=== PATIENT | female | born 1950 | race Two or more races ===

== ENCOUNTER → 2016-11-23 | Outpatient (CLI) | payer BC ==
[~2016-11-23] MED LIST: /HCTZ25TA PO; ATOR1TAB21 PO; GABA300C2 PO; GLUC10TA18 PO; INSULADS SC; JANU100T PO; VICT18IN SC; VITA200016 PO; ZEST20TA8 PO
--- NOTE | 2016-12-19 01:04 | ECWPNPC ---
PATIENT NAME: PIERCE SOLORZANO : 1950 GENDER: FEMALE VISIT DATE: 11/23/2016 DISCHARGE DATE: 11/23/16 1103 VISIT LOCKED DATE TIME: PHYSICIAN: SANTOS RAWLS RESOURCE: SANTOS RAWLS REASON FOR APPOINTMENT 1. CHRONIC NECK PAIN HISTORY OF PRESENT ILLNESS FALL RISK SCREENING: SCREENING :NO FALLS IN THE PAST YEAR PAIN SCREENING: PATIENT HAS A COMPLAINT OF ACUTE OR CHRONIC PAIN :YES TODAY'S VISIT: NOTES: REFERRED BY DR LUI/PA AT [facility] FOR NECK PAIN. WAS PREVIOUSLY A PATIENT HERE 4 YEARS AGO. INITIALLY HAD INTERMITTANT PAIN IN THE NECK BUT WHAT IS PARTICULARLY BOTHERSOME IS THE TINGLING IN ORIGINALLY LEFT ARM, AND NOW TO THE RIGHT. HAS SOME INTERMITTANT WEAKNESS AND NO PARTICULAR DIFF WITH FINE HAND COORDINATION. DISCOMFORT IN ARM AWAKENS FROM SLEEP AT TIMES. NO HEADACHES. HEARS AUDIBLE CRACKING WHEN TURNING HEAD. HAS BEEN ATTENDING PHYSICAL THERAPY. NO IMPROVEMNT. HAS BEEN ON GABAPENTIN BUT NOTES NO IMPROVEMENT. WAS SEEN FOR SURGICAL EVAL BY DR PRATT AT [facility] - RECOMMENDS TRYING MORE CONSERVITIVE TREATMENT FRST.. CURRENT MEDICATIONS TAKING HYDROCHLOROTHIAZIDE 25 MG TABLET 1 TABLET IN THE MORNING ORALLY ONCE A DAY TAKING LISINOPRIL 20 MG TABLET 1 TABLET ORALLY ONCE A DAY TAKING JANUVIA 100 MG TABLET 1 TABLET ORALLY ONCE A DAY TAKING GLUCOTROL XL 10 MG TABLET EXTENDED RELEASE 24 HOUR 1 TABLET ORALLY BID TAKING ATORVASTATIN CALCIUM 20 MG TABLET 1 TABLET ORALLY ONCE A DAY TAKING VITAMIN D 1000 UNIT TABLET 1 TABLET ORALLY ONCE A DAY TAKING LANTUS 100 UNIT/ML SOLUTION 46 UNITS SUBCUTANEOUS DAILY TAKING NOVOLOG 100 UNIT/ML SOLUTION SLIDING SCALE SUBCUTANEOUS TAKING GABAPENTIN 300 MG CAPSULE 1 CAPSULE ORALLY BID MEDICATION LIST REVIEWED AND RECONCILED WITH THE PATIENT PAST MEDICAL HISTORY ARTHRITIS DM HTN HYPERLIPIDEMIA RENAL INSUFFICIENCY DIVERTICULOSIS ALLERGIES N.K.D.A. SURGICAL HISTORY MENISCUS LEFT KNEE 2013 FAMILY HISTORY FATHER: , DIAGNOSED WITH CANCER MOTHER: 86 YRS SIBLINGS: ALIVE, DIAGNOSED WITH HYPERTENSION, HEART DISEASE 2 BROTHER(S) . 1 SON(S) , 1 DAUGHTER(S) - HEALTHY. BROTHERS WITH HIGH BLOOD PRESSURE, ONE HAD CABGX 4 VESSEL. SOCIAL HISTORY GENERAL: TOBACCO USE ARE YOU A:FORMER SMOKER HOW LONG HAS IT BEEN SINCE YOU LAST SMOKED?> 10 YEARS LUNG CANCER SCREENING SMOKING STATUS:FORMER SMOKER IS THE PATIENT BETWEEN THE AGE OF 57 AND 79?YES HAVE YOU QUIT SMOKING WITHIN THE PAST 15 YEARS?YES HAS THE PATIENT EVER BEEN DIAGNOSED WITH LUNG CANCER?NO RECREATIONAL DRUG USE DRUG USE?NO PATIENT DENIES USE OF ANY ILLEGAL SUBSTANCE INCLUDING MARIJUANA OR COCAINE. CAFFEINE CAFFEINE USE?YES HOW OFTEN AND HOW MUCH? L1 CUP COFFEE/DAY OCCUPATION: RETIRED. DIET: DIABETIC. MARITAL STATUS: . OTHERS AT HOME: NONE. PETS: 1 DOG. LANGUAGE LANGUAGES SPOKEN:INDONESIAN LEARNING BARRIERS / SPECIAL NEEDS BARRIERS TO LEARNING?NO PAIN CLINIC PFS, CLERGY, PUBLIC HEALTH REFERRALS HAS THE PATIENT BEEN EDUCATED REGARDING HIS/HER PLAN OF CARE?YES HAS THE PATIENT BEEN EDUCATED REGARDING PAIN, THE RISK FOR PAIN, THE IMPORTANCE OF EFFECTIVE PAIN MANAGEMENT, AND THE PAIN ASSESSMENT PROCESS?YES ADVANCE DIRECTIVES HEALTH CARE PROXY?NO WOULD YOU LIKE MORE INFORMATION?NO DO YOU HAVE A DNR?NO WOULD YOU LIKE MORE INFORMATION?NO LIVING WILL?NO WOULD YOU LIKE MORE INFORMATION?NO POWER OF FIRST BEATER?NO WOULD YOU LIKE MORE INFORMATION?NO HOSPITALIZATION/MAJOR DIAGNOSTIC PROCEDURE DENIES PAST HOSPITALIZATION REVIEW OF SYSTEMS REVIEWED BY: PROVIDER: SANTOS INMAN . CONSTITUTIONAL: ANY CHANGE IN YOUR MEDICAL CONDITION? NO . CHILLS NO . FEVER NO . INFECTION: DO YOU HAVE NEW INFECTIONS? NO . DO YOU HAVE HISTORY OF MRSA? NO . MUSCULOSKELETAL: ANY NEW PATTERNS OF PAIN OR NUMBNESS? YES PT REPORTS BURNING/TINGLING DOWN RIGHT ARM INTO HANDS. WAS INTERMITTANT, AND BECAME CONSTANT. HAS TRIED PHYSICAL THERAPY WITH NO HELP. . SYTEMIC LUPUS NO . GASTROENTEROLOGY: ANY NEW CHANGE IN BOWEL CONTROL? NO . BARRETTS ESOPHAGUS NO . CIRRHOSIS NO . HEPATITIS NO . LIVER FAILURE NO . ACID REFLUX NO . UNEXPLAINED WEIGHT LOSS NO . GENITOURINARY: ANY NEW CHANGE IN BLADDER CONTROL? NO . IS THERE A CHANCE YOU COULD BE ? NO . HEMATOLOGY/LYMPH: DO YOU TAKE ANY BLOOD THINNERS? (FOR EXAMPLE- COUMADIN, PLAVIX, AGGRENOX, PLATEL, PRADAXA, OR XARELTO) NO . WHEN WAS YOUR LAST DOSE? DATE: TIME: . LOW PLATELET COUNT NO . SICKLE CELL DISEASE NO . VON WILLIEBRANDS NO . FACTOR V LEIDEN NO . THALLASEMIA NO . ANEMIA NO . EASY BRUISING NO . NEUROLOGY: HAVE YOU FALLEN IN THE PAST 6 MONTHS? NO . ANY NEW EXTREMITY NUMBNESS OR WEAKNESS? NO . HEAD INJURY NO . DEMENTIA NO . CEREBRAL PALSY NO . MULTIPLE SCLEROSIS NO . DIZZINESS NO . HEADACHE NO . STROKES NO . VERTIGO NO . CARDIOLOGY: DO YOU HAVE A PACEMAKER OR DEFIBRILLATOR? NO . ANGINA NO . HEART ATTACK NO . HEART SURGERY NO . CONGESTIVE HEART FAILURE/FLUID OVERLOAD NO . CHEST PAIN NO . HIGH BLOOD PRESSURE ON MEDICATION(S) . IRREGULAR HEART BEAT NO . RESPIRATORY: HAVE YOU BEEN SICK IN THE PAST WEEK? NO . FEVER NO . FLU LIKE SYMPTOMS? NO . CPAP NO . BYPAP NO . ASTHMA NO . EMPHYSEMA NO . CHRONIC LUNG DISEASES NO . SHORTNESS OF BREATH ON EXERTION NO . COUGH NO . SNORING NO . INTEGUMENTARY: DO YOU HAVE ANY RASHES OR OPEN SORES? NO . ALLERGIC/IMMUNO: ARE YOU ALLERGIC TO SHELLFISH OR IV DYE? NO . ANY NEW ALLERGIES? NO . PSYCHIATRIC: DO YOU HAVE THOUGHTS OF HURTING YOURSELF OR SOMEONE ELSE? NO . ARE YOU ABUSED, NEGLECTED, OR IN AN UNSAFE ENVIRONMENT? NO . ENDOCRINOLOGY: ARE YOU DIABETIC? YES - BLOOD SUGARS NOT CLOSELY MONITORED A1C>7. . THYROID DISORDER NO . OTHER: DO YOU NEED ANY PRESCRIPTIONS? NO . IF YES, PLEASE LIST: ____ . ANY NEW PROBLEMS WITH YOUR MEDICATIONS? NO . WHEN DID YOU LAST EAT? ____ . WHEN DID YOU LAST DRINK? ____ . WHAT DID YOU LAST DRINK? ____ . NAME OF PERSON DRIVING YOU HOME? ____ . DO YOU HAVE ANY OTHER QUESTIONS OR CONCERNS NO . VITAL SIGNS WT 216.4 LBS, HT 65 IN, BMI 36.01 INDEX, BP 152/70 MM HG, HR 74 /MIN, RR 16 /MIN, TEMP 98.4 F, OXYGEN SAT % 95%, SAFE IN ENV? (Y/N) YES, NA INITIALS WY 09:57, REVIEWED BY: NICHOLAS. EXAMINATION GENERAL EXAMINATION: PSYCHALERT , ORIENTED X 3 , APPROPRIATE MOOD AND AFFECT . HEENT:NORMOCEPHALIC, NO LYMPHADENOPATHY, NO THYROMEGLY . LUNGS:CLEAR TO AUSCULTATION BILATERALLY, NO WHEEZES, RALES OR RHONCHI . HEART:HEART RATE REGULAR, NORMAL S1S2, NO MURMURS, CLICK OR RUBS, NO CAROTID BRUITS . MUSCULOSKELETAL:MUSCLE STRENGTH TESTING 5/5 BILATERAL BILATERAL UPPER AND LOWER EXTREMITIES. POINT TENDERNESS OVER RIGHT OCCIPITAL NOTCH AND RIGHT CERVICAL PARASPINOUS MUSCLES. NO TENDERNESS OVER THORACIC SPINOUS PROCESSES. . SKIN:DRY , FLAKY LESIONS NOTED OVER LEFT SMITH. NO ERYTHEMA, NO EXUDATE . NEUROLOGIC EXAM:CN'S II-XII GROSSLY INTACT. DTR'S 3+ BILATERAL UPPER AND LOWER EXTREMITIES. DECREASED SENSATION RIGHT UPPER EXTREMITY FROM FOREAM THROUGH HAND . . DIAGNOSTIC TESTS REVIEWEDMRI OF CERVICAL SPINE COMPLETED ON 10/28/16 WAS REVIEWED. ASSESSMENTS OTHER CERVICAL DISC DISPLACEMENT AT C5-C6 LEVEL - M50.222 (PRIMARY) CERVICAL RADICULOPATHY - M54.12 TREATMENT OTHER CERVICAL DISC DISPLACEMENT AT C5-C6 LEVEL CERVICAL EPIDURAL RIGHT NOTES: CHECK BLOOD SUGAR MEDS THE AM OF PROCEDURE. DO BLOOD SUGAR MORNING OF PROCEDURE,CERVICAL EPIDURAL INJECTION MATERIAL WAS PRINTED,CERVICAL EPIDURAL INJECTION: YOUR EXPERIENCE MATERIAL WAS PRINTED. PROCEDURE CODES FA211 ESTABILISHED PATIENT [facility] CHARGE DISPOSITION & COMMUNICATION FOLLOW UP AFTER INJECTION (REASON: CHECK AUTH FOR [place]IM[place]) ELECTRONICALLY SIGNED BY RAFAEL IRAHETA ON 12/18/2016 AT 10:17 AM EDT DISCLAIMER : THIS IS A VISIT SUMMARY EXTRACTED FROM THE [email or web address] CHART. IT IS NOT A COPY OF THE [email or web address] PROGRESS NOTE. JEANETTE
== END | disposition home or self-care (01) ==
LOC: M PAIN 10:00
PROVIDERS: ATTEND Nurse Practitioner Family
DX: G89.29 Other chronic pain (principal); M50.222 Other cervical disc displacement at C5-C6 level; M54.12 Radiculopathy, cervical region; M19.90 Unspecified osteoarthritis, unspecified site; E11.9 Type 2 diabetes mellitus without complications; I10 Essential (primary) hypertension; E78.5 Hyperlipidemia, unspecified; N28.9 Disorder of kidney and ureter, unspecified; Z79.899 Other long term (current) drug therapy; Z79.4 Long term (current) use of insulin; Z87.891 Personal history of nicotine dependence

== ENCOUNTER → 2016-12-09 | Outpatient (CLI) | payer BC ==
[~2016-12-09] MED LIST changes: +ISOVUE-M 300 61% 15ML VIAL (Q9967) As Ordered ONE; +LIDOCAINE 1% SDV INJ 30 ML VIAL As Ordered ONE; +diazePAM 5 MG TAB As Ordered ONE; +methylPREDNISolone SUSP 40 MG/ML (DEPO-medrol) VIAL (J1030) As Ordered ONE; +oxyCODONE 5MG TAB As Ordered ONE
--- NOTE | 2016-12-09 16:07 | REP ---
Cervical spine series: Two views: History: Cervical epidural steroid injection for pain. 17 seconds of fluoroscopy is reported. Findings: A sequence of two last image hold fluoroscopic spot radiographs of the cervicothoracic junction document needle position and contrast injection associated with injection procedure. Signed by Gabino Cook MD 12/09/2016 05:03 P
--- NOTE | 2016-12-15 00:43 | ECWPNPC ---
PATIENT NAME: PIERCE SOLORZANO : 1950 GENDER: FEMALE VISIT DATE: 12/09/2016 DISCHARGE DATE: 12/09/16 1348 VISIT LOCKED DATE TIME: PHYSICIAN: CAITIE PHILLIPS RESOURCE: CAITIE PHILLIPS REASON FOR APPOINTMENT 1. CERVICAL EPIDURAL RIGHT HISTORY OF PRESENT ILLNESS HISTORY OF PRESENT ILLNESS: PAIN THE PATIENT DESCRIBES THE PAIN... FALL RISK SCREENING: SCREENING :NO FALLS IN THE PAST YEAR CURRENT MEDICATIONS TAKING HYDROCHLOROTHIAZIDE 25 MG TABLET 1 TABLET IN THE MORNING ORALLY ONCE A DAY, NOTES: 12/09/16 0800 TAKING LISINOPRIL 20 MG TABLET 1 TABLET ORALLY ONCE A DAY, NOTES: 12/08/16 0800 TAKING JANUVIA 100 MG TABLET 1 TABLET ORALLY ONCE A DAY, NOTES: 12/08/16 1800 TAKING GLUCOTROL XL 10 MG TABLET EXTENDED RELEASE 24 HOUR 1 TABLET ORALLY BID, NOTES: 12/08/16 1800 TAKING ATORVASTATIN CALCIUM 20 MG TABLET 1 TABLET ORALLY ONCE A DAY, NOTES: 12/08/16 1800 TAKING VITAMIN D 1000 UNIT TABLET 1 TABLET ORALLY ONCE A DAY, NOTES: 12/09/16 0800 TAKING LANTUS 100 UNIT/ML SOLUTION 46 UNITS SUBCUTANEOUS DAILY, NOTES: 12/08/16 2130 TAKING NOVOLOG 100 UNIT/ML SOLUTION SLIDING SCALE SUBCUTANEOUS , NOTES: 12/08/16 1700 TAKING GABAPENTIN 300 MG CAPSULE 1 CAPSULE ORALLY BID, NOTES: 12/08/16 1800 MEDICATION LIST REVIEWED AND RECONCILED WITH THE PATIENT PAST MEDICAL HISTORY ARTHRITIS DM HTN HYPERLIPIDEMIA RENAL INSUFFICIENCY DIVERTICULOSIS ALLERGIES N.K.D.A. REVIEW OF SYSTEMS REVIEWED BY: PROVIDER: . CONSTITUTIONAL: ANY CHANGE IN YOUR MEDICAL CONDITION? NO . CHILLS NO . FEVER NO . INFECTION: DO YOU HAVE NEW INFECTIONS? NO . DO YOU HAVE HISTORY OF MRSA? NO . MUSCULOSKELETAL: ANY NEW PATTERNS OF PAIN OR NUMBNESS? NO . GASTROENTEROLOGY: ANY NEW CHANGE IN BOWEL CONTROL? NO . GENITOURINARY: ANY NEW CHANGE IN BLADDER CONTROL? NO . IS THERE A CHANCE YOU COULD BE ? NO . HEMATOLOGY/LYMPH: DO YOU TAKE ANY BLOOD THINNERS? (FOR EXAMPLE- COUMADIN, PLAVIX, AGGRENOX, PLATEL, PRADAXA, OR XARELTO) NO . WHEN WAS YOUR LAST DOSE? DATE: TIME: . NEUROLOGY: HAVE YOU FALLEN IN THE PAST 6 MONTHS? NO . ANY NEW EXTREMITY NUMBNESS OR WEAKNESS? NO . CARDIOLOGY: DO YOU HAVE A PACEMAKER OR DEFIBRILLATOR? NO . RESPIRATORY: HAVE YOU BEEN SICK IN THE PAST WEEK? NO . FEVER NO . FLU LIKE SYMPTOMS? NO . COUGH NO . INTEGUMENTARY: DO YOU HAVE ANY RASHES OR OPEN SORES? NO . ALLERGIC/IMMUNO: ARE YOU ALLERGIC TO SHELLFISH OR IV DYE? NO . ANY NEW ALLERGIES? NO . PSYCHIATRIC: DO YOU HAVE THOUGHTS OF HURTING YOURSELF OR SOMEONE ELSE? NO . ARE YOU ABUSED, NEGLECTED, OR IN AN UNSAFE ENVIRONMENT? NO . ENDOCRINOLOGY: ARE YOU DIABETIC? YES . OTHER: DO YOU NEED ANY PRESCRIPTIONS? NO . IF YES, PLEASE LIST: ____ . ANY NEW PROBLEMS WITH YOUR MEDICATIONS? NO . WHEN DID YOU LAST EAT? ____12/08/16 1800 . WHEN DID YOU LAST DRINK? ____12/09/16 0900 . WHAT DID YOU LAST DRINK? ____WATER . NAME OF PERSON DRIVING YOU HOME? ____DEBBIE POLLIC . DO YOU HAVE ANY OTHER QUESTIONS OR CONCERNS NO . VITAL SIGNS WT 216 LBS, HT 65 IN, BMI 35.94 INDEX, BP 160/80 MM HG, HR 66 /MIN, RR 16 /MIN, TEMP 97.4 F, OXYGEN SAT % 96%, BLOOD GLUCOSE LEVEL 163 AT 1000 PER PT, SAFE IN ENV? (Y/N) YES, NA INITIALS AR 11:46, REVIEWED BY: ASSESSMENTS CERVICAL DISC DISORDER WITH RADICULOPATHY OF CERVICOTHORACIC REGION - M50.13 (PRIMARY) PROCEDURES PN CERVICAL EPIDURAL PRE PROCEDURE DIAGNOSIS CERVICAL DISC DISORDER WITH RADICULOPATHY POST PROCEDURE DIAGNOSIS CERVICAL DISC DISORDER WITH RADICULOPATHY PROCEDURE CERVICAL EPIDURAL STEROID INJECTION UNDER FLUOROSCOPIC GUIDANCE SURGEON DR. CAITIE PHILLIPS SOCIAL INSURANCE ADVISER NONE ANESTHESIA LOCAL PRE PROCEDURE NOTE THE PATIENT HAS A HISTORY OF CHRONIC CERVICAL PAIN. I EVALUATE THE PATIENT AND REVIEWED THE CHART. I WENT OVER THE RISKS, ALTERNATIVES, AND BENEFITS ASSOCIATED WITH THIS PROCEDURE. THE PATIENT WOULD LIKE TO PROCEED AND GIVE CONSENT TO PERFORMED THE PROCEDURE. THE PATIENT DENIES UNEXPLAINABLE WEIGHT LOSS, FEVER, CHILLS, OR NEW CHANGES IN URINARY OR BOWEL CONTROL DESCRIPTION OF PROCEDURE THE PATIENT WAS BROUGHT TO THE PROCEDURE ROOM AND PLACED IN THE PRONE POSITION. THE CERVICOTHORACIC AREA WAS CLEANED WITH BETADINE SOLUTION AND DRAPED ASEPTICALLY. THE PROCEDURE WAS DONE UNDER STERILE CONDITIONS. I CHECKED LATERALITY AND THE LEVEL WHERE THE PROCEDURE WAS GOING TO BE PERFORMED WITH THE PATIENT AND THE SUPPORTING STAFF AT THE MOMENT OF THE TIME OUT IN THE PROCEDURE ROOM. UNDER FLUOROSCOPIC GUIDANCE, THE TARGET WAS SELECTED AT THE INTERLAMINAR LEVEL OF C7-T1. LIDOCAINE WAS USED TO NUMB THE SKIN AND THE SUBCUTANEOUS TISSUE BELOW IT. EPIDURAL TUOHY NEEDLE 17-GAUGE WAS ADVANCED UNDER FLUOROSCOPIC GUIDANCE AND FOLLOWING PATIENT FEEDBACK UNTIL THE EPIDURAL SPACE WAS REACHED 6 CM DEEP INTO THE SKIN BY THE LOSS OF RESISTANCE TECHNIQUE. ISOVUE M DYE 30%, 0.25 ML, WAS INJECTED SHOWING ADEQUATE SPREAD OF THE DYE. THEN, A SOLUTION OF 3 ML OF NORMAL SALINE WITH DEPO-MEDROL 60 MG WAS INJECTED SLOWLY FOLLOWING PATIENT FEEDBACK. THERE WAS NO EVIDENCE OF BLOOD, PARESTHESIA OR CEREBROSPINAL FLUID DURING THE PROCEDURE. THE PATIENT WAS SENT TO THE RECOVERY ROOM. THE PATIENT WAS MOVING THE EXTREMITIES AND DOING WELL. THERE WAS NO COMPLICATION DURING THE PROCEDURE. FLUOROSCOPY TIME WAS 17 SECONDS POST PROCEDURE NOTE THE PATIENT WILL BE SEEN IN A FOLLOW UP IN THE NEXT FEW WEEKS. INSTRUCTIONS WERE GIVEN, QUESTIONS WERE ANSWERED, AND THE PATIENT EXPRESSED UNDERSTANDING AND AGREES WITH THE PLAN. I, VIANEY COX, DOCUMENTED THE ABOVE INFORMATION ACTING A SCRIBE FOR DR. PHILLIPS. I HAVE REVIEWED THE ABOVE DOCUMENT, WRITTEN BY VIANEY EDWARDS AND I VERIFY THAT IT IS ACCURATE DIAGNOSTIC IMAGING [facility] FLUORO GUIDE SPINE INJECTION (PAIN)[id number] PROCEDURE CODES 40984 CERVICAL/THORACIC W/ IMAGING 6045F RADXPS IN END [id number] PXD DISPOSITION & COMMUNICATION FOLLOW UP 3 WEEKS ELECTRONICALLY SIGNED BY CAITIE PHILLIPS MD ON 12/14/2016 AT 02:46 AM EDT DISCLAIMER : THIS IS A VISIT SUMMARY EXTRACTED FROM THE [employer] CHART. IT IS NOT A COPY OF THE [employer] PROGRESS NOTE. MTDD
== END ==
LOC: M PAIN 11:30
PROVIDERS: ATTEND Anesthesiology
DX: G89.29 Other chronic pain (principal); M50.13 Cervical disc disorder with radiculopathy, cervicothoracic region; E11.9 Type 2 diabetes mellitus without complications; I10 Essential (primary) hypertension; E78.5 Hyperlipidemia, unspecified; Z79.4 Long term (current) use of insulin; Z79.899 Other long term (current) drug therapy
CPT/HCPCS: 62321; J1030; Q9967

== ENCOUNTER → 2017-01-05 | Outpatient (CLI) | payer BC ==
[~2017-01-05] MED LIST changes: -ISOVUE-M 300 61% 15ML VIAL (Q9967) As Ordered ONE; -LIDOCAINE 1% SDV INJ 30 ML VIAL As Ordered ONE; -diazePAM 5 MG TAB As Ordered ONE; -methylPREDNISolone SUSP 40 MG/ML (DEPO-medrol) VIAL (J1030) As Ordered ONE; -oxyCODONE 5MG TAB As Ordered ONE
--- NOTE | 2017-01-28 01:42 | ECWPNPC ---
PATIENT NAME: PIERCE SOLORZANO : 1950 GENDER: FEMALE VISIT DATE: 01/05/2017 DISCHARGE DATE: 01/05/17 1229 VISIT LOCKED DATE TIME: PHYSICIAN: SANTOS RAWLS RESOURCE: SANTOS RAWLS HISTORY OF PRESENT ILLNESS HISTORY OF PRESENT ILLNESS: PAIN THE PATIENT DESCRIBES THE PAIN... FALL RISK SCREENING: SCREENING :NO FALLS IN THE PAST YEAR TODAY'S VISIT: NOTES: S/P CERVICAL EPIDURAL COMPLETED ON 12/09/16. PAIN LEVEL PRIOR 4/10. INITIALLY AFTER PROCEDURE HAD NO PAIN AND THAN SOME DISCOMFORT FOR A FEW DAYS AT 3/10. OVER LAST 2 WEEKS PAIN HAS BEEN 2.5/10 AND SHE REPORTS AT LEASY 50% IMPROVEMENT AND THAT SHE IS QUITE PLEASED. IS STILL HAVING SOME PAIN INTO RIGHT ARM AND HAS SOME NUMB SENSATION INTO THE RIGHT THUMB. PAIN IS WORSE WHEN LIFTING HEAD. . CURRENT MEDICATIONS TAKING JANUVIA 100 MG TABLET 1 TABLET ORALLY ONCE A DAY TAKING HYDROCHLOROTHIAZIDE 25 MG TABLET 1 TABLET IN THE MORNING ORALLY ONCE A DAY TAKING LISINOPRIL 20 MG TABLET 1 TABLET ORALLY ONCE A DAY TAKING GLUCOTROL XL 10 MG TABLET EXTENDED RELEASE 24 HOUR 1 TABLET ORALLY BID TAKING ATORVASTATIN CALCIUM 20 MG TABLET 1 TABLET ORALLY ONCE A DAY TAKING VITAMIN D 1000 UNIT TABLET 1 TABLET ORALLY ONCE A DAY TAKING LANTUS 100 UNIT/ML SOLUTION 46 UNITS SUBCUTANEOUS DAILY TAKING NOVOLOG 100 UNIT/ML SOLUTION SLIDING SCALE SUBCUTANEOUS NOT-TAKING GABAPENTIN 300 MG CAPSULE 1 CAPSULE ORALLY BID PAST MEDICAL HISTORY ARTHRITIS DM HTN HYPERLIPIDEMIA RENAL INSUFFICIENCY DIVERTICULOSIS ALLERGIES N.K.D.A. SURGICAL HISTORY MENISCUS LEFT KNEE 2013 FAMILY HISTORY FATHER: , DIAGNOSED WITH CANCER MOTHER: 86 YRS SIBLINGS: ALIVE, DIAGNOSED WITH HYPERTENSION, HEART DISEASE 2 BROTHER(S) . 1 SON(S) , 1 DAUGHTER(S) - HEALTHY. BROTHERS WITH HIGH BLOOD PRESSURE, ONE HAD CABGX 4 VESSEL. SOCIAL HISTORY GENERAL: TOBACCO USE ARE YOU A:FORMER SMOKER HOW LONG HAS IT BEEN SINCE YOU LAST SMOKED?> 10 YEARS LUNG CANCER SCREENING SMOKING STATUS:FORMER SMOKER IS THE PATIENT BETWEEN THE AGE OF 57 AND 79?YES HAVE YOU QUIT SMOKING WITHIN THE PAST 15 YEARS?YES HAS THE PATIENT EVER BEEN DIAGNOSED WITH LUNG CANCER?NO RECREATIONAL DRUG USE DRUG USE?NO PATIENT DENIES USE OF ANY ILLEGAL SUBSTANCE INCLUDING MARIJUANA OR COCAINE. CAFFEINE CAFFEINE USE?YES HOW OFTEN AND HOW MUCH? L1 CUP COFFEE/DAY OCCUPATION: RETIRED. DIET: DIABETIC. MARITAL STATUS: . OTHERS AT HOME: NONE. PETS: 1 DOG. NONDENOMINATIONAL [id number] NONE LANGUAGE LANGUAGES SPOKEN:MALTESE LEARNING BARRIERS / SPECIAL NEEDS CHANGE FROM LAST VISIT?NO BARRIERS TO LEARNING?NO HEARING IMPAIRED?NO VISION IMPAIRED?NO COGNITIVELY IMPAIRED?NO READINESS TO LEARN?YES LEARNING PREFERENCES?NO LEARNING CAPABILITIES PRESENT?YES EMOTIONAL BARRIERS?NO SPECIAL DEVICES?NO WRAPPER SIZER NEEDED?NO PAIN CLINIC PFS, CLERGY, PUBLIC HEALTH REFERRALS HAS THE PATIENT BEEN EDUCATED REGARDING HIS/HER PLAN OF CARE?YES HAS THE PATIENT BEEN EDUCATED REGARDING PAIN, THE RISK FOR PAIN, THE IMPORTANCE OF EFFECTIVE PAIN MANAGEMENT, AND THE PAIN ASSESSMENT PROCESS?YES ADVANCE DIRECTIVES HEALTH CARE PROXY?NO WOULD YOU LIKE MORE INFORMATION?YES DO YOU HAVE A DNR?NO WOULD YOU LIKE MORE INFORMATION?NO LIVING WILL?NO WOULD YOU LIKE MORE INFORMATION?NO POWER OF RN PSYCHIATRIC?NO WOULD YOU LIKE MORE INFORMATION?NO HOSPITALIZATION/MAJOR DIAGNOSTIC PROCEDURE DENIES PAST HOSPITALIZATION REVIEW OF SYSTEMS REVIEWED BY: PROVIDER: . CONSTITUTIONAL: ANY CHANGE IN YOUR MEDICAL CONDITION? NO . CHILLS NO . FEVER NO . INFECTION: DO YOU HAVE NEW INFECTIONS? NO . DO YOU HAVE HISTORY OF MRSA? NO . MUSCULOSKELETAL: ANY NEW PATTERNS OF PAIN OR NUMBNESS? NO . GASTROENTEROLOGY: ANY NEW CHANGE IN BOWEL CONTROL? NO . GENITOURINARY: ANY NEW CHANGE IN BLADDER CONTROL? NO . IS THERE A CHANCE YOU COULD BE ? NO . HEMATOLOGY/LYMPH: DO YOU TAKE ANY BLOOD THINNERS? (FOR EXAMPLE- COUMADIN, PLAVIX, AGGRENOX, PLATEL, PRADAXA, OR XARELTO) NO . WHEN WAS YOUR LAST DOSE? DATE: TIME: . NEUROLOGY: HAVE YOU FALLEN IN THE PAST 6 MONTHS? NO . ANY NEW EXTREMITY NUMBNESS OR WEAKNESS? NO . PATIENT COMPLAINING OF SLEEP DISRUPTION WITH TINGLING IN RIGHT ARM . CARDIOLOGY: DO YOU HAVE A PACEMAKER OR DEFIBRILLATOR? NO . RESPIRATORY: HAVE YOU BEEN SICK IN THE PAST WEEK? NO . FEVER NO . FLU LIKE SYMPTOMS? NO . COUGH NO . INTEGUMENTARY: DO YOU HAVE ANY RASHES OR OPEN SORES? NO . ALLERGIC/IMMUNO: ARE YOU ALLERGIC TO SHELLFISH OR IV DYE? NO . ANY NEW ALLERGIES? NO . PSYCHIATRIC: DO YOU HAVE THOUGHTS OF HURTING YOURSELF OR SOMEONE ELSE? NO . ARE YOU ABUSED, NEGLECTED, OR IN AN UNSAFE ENVIRONMENT? NO . ENDOCRINOLOGY: ARE YOU DIABETIC? YES . OTHER: DO YOU NEED ANY PRESCRIPTIONS? NO . IF YES, PLEASE LIST: ____ . ANY NEW PROBLEMS WITH YOUR MEDICATIONS? NO . WHEN DID YOU LAST EAT? ____ . WHEN DID YOU LAST DRINK? ____ . WHAT DID YOU LAST DRINK? ____ . NAME OF PERSON DRIVING YOU HOME? ____ . DO YOU HAVE ANY OTHER QUESTIONS OR CONCERNS NO . VITAL SIGNS WT 216.8 LBS, HT 65 IN, BMI 36.07 INDEX, BP 146/73 MM HG, HR 70 /MIN, RR 16 /MIN, TEMP 99.1 F, OXYGEN SAT % 96%, NA INITIALS SC 11:27, REVIEWED BY: KATHY. ASSESSMENTS OTHER CERVICAL DISC DISPLACEMENT AT C5-C6 LEVEL - M50.222 (PRIMARY) CERVICAL RADICULOPATHY - M54.12 CERVICAL FACET SYNDROME - M46.92 TREATMENT OTHER CERVICAL DISC DISPLACEMENT AT C5-C6 LEVEL NOTES: CONTINUE ICE HEAT, GENTLE STRETCHES,FACET JOINT INJECTION MATERIAL WAS PRINTED,FACET JOINT INJECTION: YOUR EXPERIENCE MATERIAL WAS PRINTED. CERVICAL FACET SYNDROME CERVICAL FACET JOINT SANTOS CLARK 01/05/2017 12:15:47 PM > RIGHT PROCEDURE CODES FA211 ESTABILISHED PATIENT [facility] CHARGE DISPOSITION & COMMUNICATION FOLLOW UP AFTER INJECTIONS (REASON: CHECK AUTH FOR RIGHT CERVICAL FACET BLOCK AT C5-6, C6-7, C7-T1) ELECTRONICALLY SIGNED BY RAFAEL IRAHETA ON 01/26/2017 AT 08:30 AM EST DISCLAIMER : THIS IS A VISIT SUMMARY EXTRACTED FROM THE [employer] CHART. IT IS NOT A COPY OF THE [employer] PROGRESS NOTE. JEANETTE
== END ==
LOC: M PAIN 10:45
PROVIDERS: ATTEND Nurse Practitioner Family
DX: G89.29 Other chronic pain (principal); M50.222 Other cervical disc displacement at C5-C6 level; M54.12 Radiculopathy, cervical region; M46.92 Unspecified inflammatory spondylopathy, cervical region; E11.9 Type 2 diabetes mellitus without complications; I10 Essential (primary) hypertension; E78.5 Hyperlipidemia, unspecified; N28.9 Disorder of kidney and ureter, unspecified; K57.90 Diverticulosis of intestine, part unspecified, without perforation or abscess without bleeding; Z79.4 Long term (current) use of insulin; Z79.899 Other long term (current) drug therapy; Z87.891 Personal history of nicotine dependence

== ENCOUNTER → 2017-01-19 | Outpatient (CLI) | payer BC ==
--- NOTE | 2017-01-21 23:59 | ECWPNPC ---
PATIENT NAME: PIERCE SOLORZANO : 1950 GENDER: FEMALE VISIT DATE: 01/19/2017 DISCHARGE DATE: 01/19/17 1021 VISIT LOCKED DATE TIME: PHYSICIAN: CAITIE PHILLIPS RESOURCE: CAITIE PHILLIPS REASON FOR APPOINTMENT 1. NECK PAIN HISTORY OF PRESENT ILLNESS FALL RISK SCREENING: SCREENING :NO FALLS IN THE PAST YEAR 66 Y/O FEMALE WITH HISTORY OF CHRONIC NECK PAIN. PATIENT DESCRIBES THE PAIN SHOOTING PAIN THAT COMES AND GOES WITH A PAIN SCORE OF 1.5 / 10. PATIENT HAS HAD THE PAIN FOR SEVERAL MONTHS AND HAS TRIED PHYSICAL THERAPY BUT STATES THAT IT DID NOT WORK. PATIENT RECEIVED A CERVICAL EPIDURAL ON 12/09/2016 AND STATES THAT THE PROCEDURE HELPED LOWER HER PAIN WITH THE RIGHT ARM PAIN AND THAT SHE IS FEELING BETTER. PREVIOUSLY BEFORE THE PROCEDURE THE PATIENT STATES THAT HER PAIN SCALE WAS A 4-7/10. PATIENT DENIES UNEXPLAINABLE WEIGHT LOSS, FEVER, CHILLS, NEW CHANGES ON HER URINARY OR BOWEL CONTROL. PAIN SCREENING: PATIENT HAS A COMPLAINT OF ACUTE OR CHRONIC PAIN :YES CURRENT MEDICATIONS TAKING JANUVIA 100 MG TABLET 1 TABLET ORALLY ONCE A DAY, NOTES: 01/19 5:30PM TAKING HYDROCHLOROTHIAZIDE 25 MG TABLET 1 TABLET IN THE MORNING ORALLY ONCE A DAY, NOTES: 01/20 6AM TAKING LISINOPRIL 20 MG TABLET 1 TABLET ORALLY ONCE A DAY, NOTES: 01/19 5:30PM TAKING GLUCOTROL XL 10 MG TABLET EXTENDED RELEASE 24 HOUR 1 TABLET ORALLY BID, NOTES: 01/19 5:30PM TAKING ATORVASTATIN CALCIUM 20 MG TABLET 1 TABLET ORALLY ONCE A DAY, NOTES: 01/19 5:30PM TAKING VITAMIN D 1000 UNIT TABLET 1 TABLET ORALLY ONCE A DAY, NOTES: 01/20 6:30AM TAKING LANTUS 100 UNIT/ML SOLUTION 46 UNITS SUBCUTANEOUS DAILY, NOTES: 01/19 9:30PM TAKING NOVOLOG 100 UNIT/ML SOLUTION SLIDING SCALE SUBCUTANEOUS , NOTES: 01/19 5:30PM NOT-TAKING GABAPENTIN 300 MG CAPSULE 1 CAPSULE ORALLY BID MEDICATION LIST REVIEWED AND RECONCILED WITH THE PATIENT PAST MEDICAL HISTORY ARTHRITIS DM HTN HYPERLIPIDEMIA RENAL INSUFFICIENCY DIVERTICULOSIS ALLERGIES N.K.D.A. SURGICAL HISTORY MENISCUS LEFT KNEE 2013 FAMILY HISTORY FATHER: 76 YRS, DIAGNOSED WITH CANCER MOTHER: 86 YRS SIBLINGS: ALIVE, DIAGNOSED WITH HYPERTENSION, HEART DISEASE 2 BROTHER(S) . 1 SON(S) , 1 DAUGHTER(S) - HEALTHY. BROTHERS WITH HIGH BLOOD PRESSURE, ONE HAD CABGX 4 VESSEL. SOCIAL HISTORY GENERAL: TOBACCO USE ARE YOU A:FORMER SMOKER HOW LONG HAS IT BEEN SINCE YOU LAST SMOKED?> 10 YEARS LUNG CANCER SCREENING SMOKING STATUS:FORMER SMOKER IS THE PATIENT BETWEEN THE AGE OF 57 AND 79?YES HAVE YOU QUIT SMOKING WITHIN THE PAST 15 YEARS?YES HAS THE PATIENT EVER BEEN DIAGNOSED WITH LUNG CANCER?NO RECREATIONAL DRUG USE DRUG USE?NO PATIENT DENIES USE OF ANY ILLEGAL SUBSTANCE INCLUDING MARIJUANA OR COCAINE. CAFFEINE CAFFEINE USE?YES HOW OFTEN AND HOW MUCH? L1 CUP COFFEE/DAY OCCUPATION: RETIRED. DIET: DIABETIC. MARITAL STATUS: . OTHERS AT HOME: NONE. PETS: 1 DOG. MORAVIAN [id number] NONE LANGUAGE LANGUAGES SPOKEN:INDIAN LEARNING BARRIERS / SPECIAL NEEDS CHANGE FROM LAST VISIT?NO BARRIERS TO LEARNING?NO HEARING IMPAIRED?NO VISION IMPAIRED?NO COGNITIVELY IMPAIRED?NO READINESS TO LEARN?YES LEARNING PREFERENCES?NO LEARNING CAPABILITIES PRESENT?YES EMOTIONAL BARRIERS?NO SPECIAL DEVICES?NO BEAM BUILDER HELPER NEEDED?NO PAIN CLINIC PFS, CLERGY, PUBLIC HEALTH REFERRALS WAS THE PROVIDER NOTIFIED OF ANY PERTINENT INFO?YES HAS THE PATIENT BEEN EDUCATED REGARDING HIS/HER PLAN OF CARE?YES HAS THE PATIENT BEEN EDUCATED REGARDING PAIN, THE RISK FOR PAIN, THE IMPORTANCE OF EFFECTIVE PAIN MANAGEMENT, AND THE PAIN ASSESSMENT PROCESS?YES REVIEWED BY: DS. ADVANCE DIRECTIVES HEALTH CARE PROXY?NO WOULD YOU LIKE MORE INFORMATION?YES DO YOU HAVE A DNR?NO WOULD YOU LIKE MORE INFORMATION?NO LIVING WILL?NO WOULD YOU LIKE MORE INFORMATION?NO POWER OF [place]?NO WOULD YOU LIKE MORE INFORMATION?NO HOSPITALIZATION/MAJOR DIAGNOSTIC PROCEDURE DENIES PAST HOSPITALIZATION REVIEW OF SYSTEMS REVIEWED BY: PROVIDER: , CAITIE PHILLIPS MD . CONSTITUTIONAL: ANY CHANGE IN YOUR MEDICAL CONDITION? NO . CHILLS NO . FEVER NO . INFECTION: DO YOU HAVE NEW INFECTIONS? NO . DO YOU HAVE HISTORY OF MRSA? NO . MUSCULOSKELETAL: ANY NEW PATTERNS OF PAIN OR NUMBNESS? NO . SYTEMIC LUPUS NO . GASTROENTEROLOGY: ANY NEW CHANGE IN BOWEL CONTROL? NO . BARRETTS ESOPHAGUS NO . CIRRHOSIS NO . HEPATITIS NO . LIVER FAILURE NO . ACID REFLUX NO . UNEXPLAINED WEIGHT LOSS NO . GENITOURINARY: ANY NEW CHANGE IN BLADDER CONTROL? NO . IS THERE A CHANCE YOU COULD BE ? NO . HEMATOLOGY/LYMPH: DO YOU TAKE ANY BLOOD THINNERS? (FOR EXAMPLE- COUMADIN, PLAVIX, AGGRENOX, PLATEL, PRADAXA, OR XARELTO) NO . WHEN WAS YOUR LAST DOSE? DATE: TIME: . LOW PLATELET COUNT NO . SICKLE CELL DISEASE NO . VON WILLIEBRANDS NO . FACTOR V LEIDEN NO . THALLASEMIA NO . ANEMIA NO . EASY BRUISING NO . NEUROLOGY: HAVE YOU FALLEN IN THE PAST 6 MONTHS? NO . ANY NEW EXTREMITY NUMBNESS OR WEAKNESS? NO . HEAD INJURY NO . DEMENTIA NO . CEREBRAL PALSY NO . MULTIPLE SCLEROSIS NO . DIZZINESS NO . HEADACHE NO . STROKES NO . VERTIGO NO . CARDIOLOGY: DO YOU HAVE A PACEMAKER OR DEFIBRILLATOR? NO . ANGINA NO . HEART ATTACK NO . HEART SURGERY NO . CONGESTIVE HEART FAILURE/FLUID OVERLOAD NO . CHEST PAIN NO . HIGH BLOOD PRESSURE NO . IRREGULAR HEART BEAT NO . RESPIRATORY: HAVE YOU BEEN SICK IN THE PAST WEEK? NO . FEVER NO . FLU LIKE SYMPTOMS? NO . CPAP NO . BYPAP NO . ASTHMA NO . EMPHYSEMA NO . CHRONIC LUNG DISEASES NO . SHORTNESS OF BREATH ON EXERTION NO . COUGH NO . SNORING NO . INTEGUMENTARY: DO YOU HAVE ANY RASHES OR OPEN SORES? NO . ALLERGIC/IMMUNO: ARE YOU ALLERGIC TO SHELLFISH OR IV DYE? NO . ANY NEW ALLERGIES? NO . PSYCHIATRIC: DO YOU HAVE THOUGHTS OF HURTING YOURSELF OR SOMEONE ELSE? NO . ARE YOU ABUSED, NEGLECTED, OR IN AN UNSAFE ENVIRONMENT? NO . ENDOCRINOLOGY: ARE YOU DIABETIC? YES, FSBS 122 . THYROID DISORDER NO . OTHER: DO YOU NEED ANY PRESCRIPTIONS? NO . IF YES, PLEASE LIST: ____ . ANY NEW PROBLEMS WITH YOUR MEDICATIONS? NO . WHEN DID YOU LAST EAT? 01/19/17 7PM . WHEN DID YOU LAST DRINK? 01/19 6:30AM . WHAT DID YOU LAST DRINK? WATER . NAME OF PERSON DRIVING YOU HOME? AME . DO YOU HAVE ANY OTHER QUESTIONS OR CONCERNS NO . VITAL SIGNS WT 213.2 LBS, HT 65 IN, BMI 35.47 INDEX, BP 142/67 MM HG, HR 81 /MIN, RR 16 /MIN, TEMP 97.7 F, OXYGEN SAT % 92%, SAFE IN ENV? (Y/N) Y, NA INITIALS SC 08:37, REVIEWED BY: GRECIA. EXAMINATION : PATIENT IS ALERT O X 3 AND COOPERATIVE. PATIENT RIGHT ARM IS WEAKER THAN HER LEFT ARM. PATIENT IS ABLE TO FLEX HER NECK AT 60 DEGREES AND EXTEND AT 20 DEGREES. RIGHT LATERAL ROTATION OF HEAD AT 45 DEGREES AND LEFT 60 DEGREES. MRI ON 10/28/2016 SHOWS BULGING DISCS AT C3-C4 LEVEL. BULGING DISCS ARE PRESENT AT C4-C5 LEVEL. MRI ALSO SHOWS SIGNS OF DISC DEGENERATION. 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 SOLORZANO'S PAIN MANAGEMENT CASE. PATIENT WILL CONTINUE THE SAME MED REGIMINE. WE DISCUSSED THE PATIENT PAIN LEVEL AFTER THE PROCEDURE; PATIENT STATES THAT SHE FEELS BETTER AFTER THE PROCEDURE WITH A PAIN SCALE OF 1.5 / 10. PREVIOUS PAIN LEVEL BEFORE THE PROCEDURE WAS A 4-7 /10. AT THIS TIME WE DISCUSSED HOLDING OFF ON INTERVENTION BECAUSE OF THE PATIENT IS STILL FEELING RELIEF FROM THE PREVIOUS INJECTION. PATIENT HAS A FOLLOW UP IN 3 MONTHS. PATIENT WILL CALL IF SHE FEELS SHE NEEDS TO COME IN SOONER OR IF SHE HAS ANY CONCERNS. DIAGNOSTIC IMAGING [facility] FACET BLOCK (PAIN) (ORDER CANCELLED)[id number] PROCEDURE CODES FA211 ESTABILISHED PATIENT [facility] CHARGE G8427 DOC MEDS VERIFIED W/PT OR RE G8130 PT NOT TREAT W/ANTIDEPRES 6M DISPOSITION & COMMUNICATION FOLLOW UP 3 MONTHS ELECTRONICALLY SIGNED BY CAITIE PHILLIPS MD ON 01/20/2017 AT 05:47 PM EST DISCLAIMER : THIS IS A VISIT SUMMARY EXTRACTED FROM THE [email or web address] CHART. IT IS NOT A COPY OF THE [email or web address] PROGRESS NOTE. JEANETTE
== END ==
LOC: M PAIN 08:30
PROVIDERS: ATTEND Anesthesiology
DX: G89.29 Other chronic pain (principal); M50.222 Other cervical disc displacement at C5-C6 level; M54.12 Radiculopathy, cervical region; M46.92 Unspecified inflammatory spondylopathy, cervical region; E11.9 Type 2 diabetes mellitus without complications; E78.5 Hyperlipidemia, unspecified; I12.9 Hypertensive chronic kidney disease with stage 1 through stage 4 chronic kidney disease, or unspecified chronic kidney disease; N18.9 Chronic kidney disease, unspecified; Z79.4 Long term (current) use of insulin; Z79.899 Other long term (current) drug therapy; Z87.891 Personal history of nicotine dependence

== ENCOUNTER → 2017-03-22 | Outpatient (CLI) | payer BC | LOC: M PAIN 08:45 | DX: M50.222 Other cervical disc displacement at C5-C6 level (principal); M54.12 Radiculopathy, cervical region; M46.92 Unspecified inflammatory spondylopathy, cervical region; E78.5 Hyperlipidemia, unspecified; I10 Essential (primary) hypertension; E11.9 Type 2 diabetes mellitus without complications; Z79.4 Long term (current) use of insulin; Z79.899 Other long term (current) drug therapy; Z87.891 Personal history of nicotine dependence | CPT/HCPCS: G0463 ==

== ENCOUNTER → 2019-11-01 | Outpatient (REF) | payer BC, MEDICARE ==
[~2019-11-01] MED LIST changes: -/HCTZ25TA PO; +ASPI81CH33 PO; +ATOR1TAB21; +GLIP10TA18; +HYDR-3644 PO; +HYDR25TAB; +JANU100T; +LEVE1INJ5; +LISI-538; +METF-838; +NOVOINJ3
== END ==
LOC: M LAB REF 14:10
PROVIDERS: ATTEND Surgery
DX: D48.62 Neoplasm of uncertain behavior of left breast (principal)

== ENCOUNTER → 2019-12-06 | Outpatient (CLI) | payer BC, MEDICARE ==
[~2019-12-06] MED LIST changes: +PROHANCE 279.3MG/ML 15ML VIAL As Ordered ONE; +PROHANCE 279.3MG/ML 5ML VIAL As Ordered ONE
--- NOTE | 2019-12-11 12:47 | REP ---
MRI BILATERAL BREASTS WITH AND WITHOUT CONTRAST Wednesday, HISTORY: Abnormal mammogram [facility] 10/06/2019. Palpable lump left breast with ill-defined increased density and heterogeneous hypoechoic mass seen on ultrasound left breast. TECHNIQUE: Multiple sequences obtained in the axial, coronal, and sagittal planes prior to and following the intravenous administration 17 mL ProHance. Images are evaluated in the [employer] software including dynamic post intravenous (IV) gadolinium axial T1 fat sat images, subtraction images, color overlay images, and CAD images. FINDINGS: There is moderate fibroglandular tissue scattered bilaterally. There is mild background parenchymal enhancement diffusely bilaterally. The study is limited due to patient motion. There are multiple subcentimeter cystic structures bilaterally. These do not enhance. The largest cyst is inferior in the left breast and measures about 7 mm in maximum diameter. No axillary adenopathy is seen. On the precontrast images, there is asymmetric architectural distortion, which is low in signal in T1 and somewhat increased in signal in T2 in the upper inner left breast. Following the administration of intravenous contrast, there is enhancement in a heterogeneous fashion with areas of both washout enhancement and persistent enhancement internally. The palpable area measures 2.4 x 4.8 x 3.0 cm and I suspect this corresponds to the palpable lump. It is in the area of the mammographic abnormality. The ultrasound finding is described at 1 o'clock, but this is medially located. No other suspicious enhancing mass or morphologic abnormality is seen. IMPRESSION: BI-RADS Category 4 suspicious. In the upper inner left breast, there is an area of abnormal signal and architectural distortion, with associated mass-like enhancement, which is suspicious. The area measures 2.4 x 4.8 x 3.0 cm. This appears to correspond to the mammographic and sonographic abnormalities identified on the [place] study dated 10/06/2019. As recommended on the prior mammogram and ultrasound report, ultrasound-guided biopsy is recommended. [facility]
== END ==
LOC: M RAD 08:03
PROVIDERS: ATTEND Surgery
DX: D48.62 Neoplasm of uncertain behavior of left breast (principal)
CPT/HCPCS: A9576; C8908

== ENCOUNTER → 2020-01-04 | Outpatient (CLI) | payer MEDICARE ==
[~2020-01-04] MED LIST changes: +PERCOCET PO; -PROHANCE 279.3MG/ML 15ML VIAL As Ordered ONE; -PROHANCE 279.3MG/ML 5ML VIAL As Ordered ONE
== END ==
LOC: M LABSMTC 11:55
PROVIDERS: ATTEND Anesthesiology
DX: Z01.812 Encounter for preprocedural laboratory examination (principal); Z20.828 Contact with and (suspected) exposure to other viral communicable diseases
CPT/HCPCS: C9803; U0003

== ENCOUNTER 2020-01-09 06:28 | Day surgery (SDC) | payer MEDICARE ==
[~2020-01-09] VITALS: Ht 167.6 cm; Wt 89.3 kg
[~2020-01-09 06:28] MED LIST changes: +LIDOCAINE 1% MDV 20ML VIAL SQ PRN; +LIDOCAINE 5% (LIDODERM) PATCH TD ONE; +LR 1,000 ML IV ONE; -PERCOCET PO
[2020-01-09] MEDS ORDERED: METHYLENE BLUE 0.5% (5MG/ML) 10 ML AMP (PROVAYBLUE) As Ordered ONE (07:54)
[2020-01-09] MEDS ORDERED: fentaNYL 100 MCG/2 ML INJECTION (J3010) As Ordered ONE (09:13)
[2020-01-09] MEDS ORDERED: MIDAZOLAM INJ 2MG/2ML VIAL (J2250 PER 1MG) As Ordered ONE (09:13)
[2020-01-09] MEDS ORDERED: HYDROmorphone HCL 2 MG/ML 1ML VIAL (J1170) As Ordered ONE (09:13)
[2020-01-09] MEDS ORDERED: propofoL 200 MG/20 ML VIAL As Ordered ONE (09:50)
[2020-01-09] MEDS ORDERED: ROCURONIUM BROMIDE 50 MG/5 ML VIAL As Ordered ONE (09:51)
[2020-01-09] MEDS ORDERED: SUCCINYLCHOLINE 100 MG/5 ML SYRINGE (J0330) As Ordered ONE (09:51)
[2020-01-09] MEDS ORDERED: dexameTHASONE 4 MG/ML 1ML VIAL (J1100 PER 1MG) As Ordered ONE (09:52)
[2020-01-09] MEDS ORDERED: ONDANSETRON 4MG/2ML VIAL As Ordered ONE (09:52)
[2020-01-09] MEDS ORDERED: LIDOCAINE 2% 100MG/5ML SDV (FOR ANES.) As Ordered ONE (09:54)
[2020-01-09] MEDS ORDERED: PHENYLephrine HCL 500 MCG/5 ML (100MCG/ML) SYRINGE (J2370) As Ordered ONE (11:26)
[2020-01-09] MEDS ORDERED: ePHEDrine SULFATE 25 MG/5 ML(5MG/ML) SYRINGE As Ordered ONE (11:26)
[2020-01-09] MEDS ORDERED: GLYCOPYRROLATE INJ 0.2 MG/ML 2 ML VIAL As Ordered ONE (11:41)
[2020-01-09] MEDS ORDERED: ACETAMINOPHEN 1000MG 100ML IV BTL (OFIRMEV) (J0131 PER 10MG) As Ordered ONE (12:06)
[2020-01-09] MEDS ORDERED: BUPIVACAINE HCL 0.5% 30 ML VIAL As Ordered ONE (14:07)
[2020-01-09] MEDS ORDERED: ONDANSETRON 4MG/2ML VIAL IV PRN (14:45)
[2020-01-09] MEDS ORDERED: METOCLOPRAMIDE INJ 10MG/2ML VIAL (J2765 PER 1) IV PRN (14:45)
[2020-01-09] MEDS ORDERED: PERCOCET 5MG/325MG TAB PO PRN (14:45)
[2020-01-09] MEDS ORDERED: LR 1,000 ML IV SCH (14:45)
[2020-01-09] MEDS ORDERED: fentaNYL 100 MCG/2 ML INJECTION (J3010) IV PRN (14:45)
[2020-01-09] MEDS ORDERED: HYDROMORPHONE HCL 0.5 MG/ 0.5 ML SYRINGE (J1170 PER 1) IV PRN (14:45)
[2020-01-09] MEDS ORDERED: PERCOCET PO (15:33)
--- NOTE | 2020-01-09 16:06 | REP ---
INDICATION: LEFT PARTIAL SENTINEL NODE BIOPSY;INJECTION 0800; SCAN 0900. COMPARISON: None. TECHNIQUE/RADIOTRACER AND DOSE: This procedure was performed by Marivel Valdovinos RUST, under the direct supervision of Dr. Cook. Images were reviewed with Dr. Cook prior to dictation. The risks and benefits of the procedure were explained to the patient and informed consent was obtained both orally and written. Directly prior to the start of the procedure, a formal timeout was done in the exam room. Using topical anesthetic and sterile technique 1.008 mCi of filtered Technetium-99m sulfur colloid was injected subdermally in 8 fractionated periareolar injections. FINDINGS: Images obtained 1 hour after injection show silvana uptake in the left axilla. IMPRESSION: Silvana uptake in the left axilla. <Electronically signed by Marivel Valdovinos > 01/09/20 1320 <Electronically signed by Edil Cook > 01/09/20 1607
[2020-01-09 16:11] VITALS: BP 151/67
--- NOTE | 2020-01-15 14:02 | RO ---
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 PROCEDURE PERFORMED: 1. Left breast/axillary sentinel lymph node biopsy. 2. Left partial mastectomy with resection of a large upper inner quadrant mass. SURGEON: Angel Piper MD ANESTHESIA: General. INDICATIONS FOR THE PROCEDURE: The patient is a 69-year-old woman who presented to the office with a large palpable mass in the upper inner quadrant of the left breast. Mammogram had shown a density in this area and ultrasound confirmed a large fairly discrete mass. A ultrasound guided needle biopsy yielded tissue that revealed some atypical cells in a background of mucin consistent with a mucinous carcinoma. An MRI was performed, which showed a mass very distinctly, but showed no other areas of suspicion. She was now for a left sentinel lymph node biopsy and excision of her mass as a partial mastectomy. OPERATIVE PROCEDURE: The patient was initially sent to the x-ray department where she underwent radiotracer injections in a circumareolar pattern. Lymphoscintigraphy revealed several points of uptake in the left axilla. She was then brought to the operating room and placed on the table in a supine position. She was placed under general endotracheal anesthesia. Some additional injections of methylene blue were performed with several half cc aliquots injected into the subdermal areas in the upper outer areas around the edge of the areola. The patients left upper extremity, breast and chest wall were then prepped and draped in a sterile fashion. The Neoprobe was used to inspect the axilla and the point of maximal radiotracer activity was identified, which was just posterior to the lateral border of the pectoralis major. This site was marked and approximately a 3 cm transverse incision was made in this area. Dissection was deepened into the axilla using a combination of sharp and cautery dissection. Dissection was guided by the Neoprobe working toward the area of the maximum activity. There was abundant fibrofatty tissue. A portion of fibrofatty tissue was removed containing one area of marked radiotracer activity. A roughly 1 cm lymph node was identified and this was from the remaining non-tracer marked fibrofatty tissue. A 10 second count was 5541. This was sent to the lab as sentinel lymph node #1. With further inspection with the Neoprobe in the axilla, a second node was identified with a 10 second count of 3,897. This was another distinct non-dye marked, but radiotracer marked node about 1 to 1.5 cm in size. This was sent as sentinel node #2. There was one additional point of tracer uptake and this was removed with some surrounding fibrofatty tissue. This had a 10 second count of 2184 and appeared to represent a much smaller node perhaps 6 to 7 mm in diameter. This was sent as sentinel #3. There was a single large node palpable just above the area of the previously resected nodes. This was perhaps 2 cm in maximum diameter and appears to represent just a large fatty node, but this was also removed and sent with the residual fatty tissue from the other nodes as non-sentinel tissue. While awaiting reports of the frozen section, the axillary wound was irrigated and inspected and hemostasis was ensured. The axillary fascia was closed with a single chromic suture and the skin edges were brought into apposition with some buried 3-0 Vicryl. Skin edges were approximated with a running subcuticular 4-0 Vicryl. I was contacted by the pathologist by phone, who reported that all 3 sentinel nodes were negative for metastatic disease on frozen section. I then proceeded to the partial mastectomy. The patient had an approximately 4 cm palpable mass, essentially filling the upper inner quadrant of the breast. This extended beneath the edge of the areolar toward the central portion of breast at least a cm. A transverse ellipse of skin was marked with a skin marker overlying this mass. This was approximately 6 cm in length x 2 cm in width. The skin was incised with a scalpel and hemostasis was ensured with the cautery. Dissection then proceeded primarily with the needle tip cautery. The mass was retracted inferiorly initially and dissection was carried down along the superior border of the mass working through the surrounding breast tissues to the level of the fascia. The mass was then retracted superiorly and likewise dissection was carried down in the denser breast tissues of the central portion of the breast working by palpation to take a margin of surrounding normal tissue about to the level of the pectoral fascia. The medial and lateral borders were somewhat simpler to identify and the specimen was then excised. This was approximately 8 cm x 7 cm x 5 cm in size. The [employer] MarginProposifyer system was used to alethea the specimen completely; and after fixing the markings, this was placed in formalin and sent to the lab for routine pathology. The wound was inspected. Hemostasis was ensured with the cautery. There was a large soft tissue defect in the upper inner quadrant of the breast. In order to try to smooth the area of the defect, the skin along the superior border of the defect was elevated off of the underlying residual rim of fibrofatty breast tissue. Likewise, the skin was elevated significantly working beneath the areolar and then extending down into the lower outer aspect of the breast elevating this off of the residual breast tissues in the central and lower outer portions of the breast. This allowed a large portion of the breast tissue that remained to be rotated and extended medially and superiorly to partially fill the defect from the excision. The breast tissues were approximated with interrupted simple sutures of 2-0 Vicryl. A 15 Faroese Brice drain was placed through a laterally placed stab wound and directed up into the area of the flap rotation. Hemostasis was ensured with cautery. The skin appeared viable and the skin envelope was approximated with interrupted simple buried sutures of 3-0 Vicryl. The edges were then approximated with a running subcuticular 4-0 Vicryl. The drain was sutured to the skin with a 2-0 silk and the drain site was dressed with a CHG OpSite. Steri-Strips were applied to skin incision. The wound was dressed with a bulky gauze bandage, held in place with tape. The patient tolerated the procedure well without apparent complications. She was awakened in the operating room, extubated and moved to the recovery room in stable condition. JEANETTE
== END 2020-01-09 16:25 | disposition home or self-care (01) ==
LOC: M SDC 06:28
PROVIDERS: ATTEND Surgery
DX: D48.62 Neoplasm of uncertain behavior of left breast (principal); I10 Essential (primary) hypertension; E11.9 Type 2 diabetes mellitus without complications; E78.00 Pure hypercholesterolemia, unspecified; Z87.891 Personal history of nicotine dependence; Z79.82 Long term (current) use of aspirin; Z79.4 Long term (current) use of insulin; Z79.84 Long term (current) use of oral hypoglycemic drugs; Z79.899 Other long term (current) drug therapy
CPT/HCPCS: 19301; 38525; 78195; 88305; 88307; 88331; A9541; J0131; J0330; J1100; J1170; J2250; J2370; J2405; J3010; Q9968; U0002

== ENCOUNTER → 2020-02-29 | Outpatient (CLI) | payer MEDICARE ==
[~2020-02-29] MED LIST changes: +ANAS1TAB2 PO; -LIDOCAINE 1% MDV 20ML VIAL SQ PRN; -LIDOCAINE 5% (LIDODERM) PATCH TD ONE; -LR 1,000 ML IV ONE; +PERCOCET PO
--- NOTE | 2020-02-29 10:58 | RADONC.CN ---
Radiation Oncology Hx/Consult Radiation Oncology Consult Date of Service: Feb 29, 2020 Pt Identifier Rebecca Julio is a 69 year old female with self-detected left breast cancer pT1aN0(sn)M0 ER/MD+ HER2- grade 2 she is s/p lumpectomy and SLNB on 01/09/20 and is seen for consideration of adjuvant RT. Diagnosis/Treatment History Oncologic History Detected a left breast lump in April 2019. In August 2019 she underwent mammogram which showed a lesion in the central left breast. US showed a hypoechoic mass. She saw Dr. Piper who performed a biopsy on 11/02/19 which showed a mucocele with associated DCIS ER/MD+ HER2-. On 01/09/20 she had a lumpectomy and SLNB which showed pT1aN0(sn)M0 grade 2 IDC, and associated DCIS, margins widely negative. Interval History She feels some pain in the LUE and decreased ROM which is not overly bothersome and is improving. She has no swelling in the LUE. No pain in the breast. Appetite good and weight stable. Has not started AI yet. Lives in [place]. Past Medical History: DMII HPL HTN Breast History: 1st @ 30 Menses @ 14 Menopause 50s No OCP No HRT Past Surgical History: As above Family History: Father colon cancer Social History: 20 pack year former smoker quit 2007 Does not drink currently Allergies / Meds Allergies: Coded Allergies: No Known Allergies (Unverified , 04/17/13) Home Meds Active Scripts Anastrozole (Anastrozole) 1 Mg Tablet, 1 MG PO DAILY for BREAST CANCER for 30 Days, #30 TAB 0 Refills Prov:GREGORIA PEÑA MD 02/16/20 Reported Medications Sitagliptin Phosphate (Januvia) 100 Mg Tablet 12/27/19 Atorvastatin Calcium (Atorvastatin Calcium) 20 Mg Tablet 12/27/19 Glipizide (Glipizide ER) 10 Mg Tab.er.24 12/27/19 Hydrochlorothiazide (Hydrochlorothiazide) 25 Mg Tablet 12/27/19 Lisinopril (Lisinopril) 20 Mg Tablet 12/27/19 Aspirin (Aspirin) 81 Mg Tab.chew, 81 MG PO 12/27/19 Metformin HCl (Metformin HCl ER) 500 Mg Tab.er.24h 10/28/20 Insulin Aspart (Novolog Flexpen) 100 Unit/1 Ml Insuln.pen 15 units 12/27/19 Insulin Detemir (Levemir Flextouch) 100 Unit/1 Ml Insuln.pen inject 54 units at bedtime 12/27/19 Cholecalciferol (Vitamin D3) (Vitamin D3) 2,000 Unit Cap, 2000 UNIT PO DAILY, CAP 12/09/12 Review of Systems Constitutional: Denies: Chills, Fever, Night Sweats Eyes: Denies: Pain, Vision change HEENT: Denies: Head Aches, Dysphagia, Sore Throat Skin: Denies: Rash, Lesions, Bruising Pulmonary: Denies: Dyspnea, Cough Cardiovascular: Denies: Chest Pain, Palpitations, Edema Breast: Denies: Breast Pain or Tenderness Gastrointestinal: Denies: Nausea, Vomiting, Abdominal Pain, Diarrhea Genitourinary: Denies: Dysuria, Frequency, Incontinence Hematologic: Denies: Bruising, Petecchia, Enlarged Lymph Nodes Musculoskeletal: Reports: Arm pain; Denies: Neck pain, Back pain Neurological: Denies: Weakness, Numbness, Incoordination Psych: Reports: Mood Normal; Denies: Memory Issues, Thoughts of Self Harm Vital Signs Ht 66" Wt 203 lb BMI 32 T 97.7 P 76 RR 16 BP 167/77 O2 98% Pain 0 Fatigue 0 General Exam: Positive: Alert, Cooperative, No Acute Distress Eye Exam: Positive: PERRLA, EOMI ENT EXAM: Positive: Mucous membr. moist/pink, Pharynx Normal Neck Exam: Negative: Thyromegaly, Lymphadenopathy Chest Exam: Positive: Normal air movement; Negative: Rales, Rhonchi, Wheezing Heart Exam: Positive: Rate Normal, Regular Rhythm Breast Exam: Positive: Skin Changes (Well healed left periareolar and axillary tail incisions. ); Negative: Symmetric Bilaterally (Ptosis BL, left breast lays higher than right), Lumps or Masses (Palpable surgical changes left breast no tenderness or lesions. ), Nipple Retraction, Nipple Discharge Abdomen Exam: Positive: Soft; Negative: Tenderness, Mass Extremity Exam: Negative: Edema, Tenderness Skin Exam: Positive: Nl turgor and temperature; Negative: Rash Neuro Exam: Positive: Normal Gait, Normal Speech, Cranial Nerves 3-12 NL Psych Exam: Positive: Mental status NL, Mood NL, Memory Intact Diagnostic and Laboratory Diagnostic Review Radiologic images, relevant labs and pathology reports were personally reviewed and discussed with Ms. Julio. Assessment and Plan Impression Ms. Julio is a 69 year old female with a history of self-detected left breast cancer pT1aN0(sn)M0 ER/MD+ HER2- grade 2 she is s/p lumpectomy and SLNB on 01/09/20 and is seen for consideration of adjuvant RT. Stage Stage IA pT1aN0(sn)M0 ER/MD+ HER2- grade 2 Performance Status ECOG 0 Plan We had an extensive discussion with Ms. Julio regarding the diagnosis at hand and available therapeutic options. She is doing well post-operatively with only mild pain and impaired ROM in the LUE. This stands to improve with time. She has an early stage mucinous cancer. This was widely excised. She would be appropriate for PBI. We discussed 40 Gy in 15 fractions (IMPORT LOW) versus 26 Gy in 5 fractions (FAST FORWARD) as options. We discussed that the length of follow up in the literature with the 5 treatment regimen is shorter than the 15 treatment regimen, she is comfortable with the small uncertainty this imposes and opts for 5 treatments. I will use VMAT to treat the tumor bed in keeping with established APBI guidelines, this will minimize heart, lung and skin dose. We discussed the logistics of receiving radiation therapy in detail including the need for a 1-time planning session. This can occur when she comes back to [facility] nect week on Monday 03/06 or Wednesday 03/08. We discussed the anticipated side effects of treatment including fatigue and skin reaction. As well as late fibrosis and skin pigment changes. After discussing the risks, benefits and alternatives to radiation therapy, Ms. Julio was amenable to pursuing radiotherapy. All questions were answered to the patient's satisfaction. We instructed the patient that if there were any questions,concerns or changes in clinical status in the interim to contact us. Recommendations 26 Gy in 5 fractions to the left breast with VMAT as discussed above Simulation 03/06/20 or 03/08/20 AI to follow RT per PEPE Reese MD Feb 29, 2020 10:58
== END ==
LOC: M ONCR 09:48
PROVIDERS: ATTEND General Practice
DX: C50.912 Malignant neoplasm of unspecified site of left female breast (principal)

== ENCOUNTER → 2020-03-06 | Outpatient (CLI) | payer MEDICARE ==
[~2020-03-06] MED LIST changes: +D31000TA2 PO
--- NOTE | 2020-03-08 15:30 | DEXAMM ---
INDICATION: BREAST CA ON AI THERAPY. COMPARISON: 10/06/2017. TECHNIQUE: Bone density was measured using dual-energy x-ray absorptiometry (DEXA). FINDINGS: AP SPINE L1-L4 BMD 1.731 g/cm2 Young Adult T-Score 4.3 Age Matched Z-Score 6.0. LT FEMUR, TOTAL BMD 1.125 g/cm2 Young Adult T-Score 0.9 Age Matched Z-Score 2.3. LT NECK BMD 1.315 g/cm2 Young Adult T-Score 2.0 Age Matched Z-Score 3.6. RT FEMUR, TOTAL BMD 1.136 g/cm2 Young Adult T-Score 1.0 Age Matched Z-Score 2.3. RT NECK BMD 1.094 g/cm2 Young Adult T-Score 0.4 Age Matched Z-Score 2.0. IMPRESSION: There is normal bone density of the spine. There is normal bone density of the left hip. There is normal bone density of the right hip. The density of the spine has increased 10.3% since the initial exam on 10/06/2017. The density of the left hip has decreased 3.1% since initial exam on 10/06/2017. FOLLOW-UP: Recommendation for the next bone density exam: 5 years. <Electronically signed by Darien Feng > 03/08/20 0328
== END ==
LOC: M WHC 10:01
PROVIDERS: ATTEND Specialist
DX: Z13.820 Encounter for screening for osteoporosis (principal); C50.912 Malignant neoplasm of unspecified site of left female breast; Z79.811 Long term (current) use of aromatase inhibitors

== ENCOUNTER 2020-03-22 10:37 | Outpatient (RCR) | payer MEDICARE | END 2020-03-31 | LOC: M ONCR 10:37 | PROVIDERS: ATTEND General Practice | DX: C50.112 Malignant neoplasm of central portion of left female breast (principal) ==

== ENCOUNTER → 2020-06-21 | Outpatient (REF) | payer MEDICARE, BC ==
[~2020-06-21] MED LIST changes: +CALC1TAB26 PO; +HYDR-3490; -HYDR25TAB; -LISI-538; +LISI20TA33
== END ==
LOC: M LAB REF 15:28
PROVIDERS: ATTEND Physician Assistant
DX: C44.629 Squamous cell carcinoma of skin of left upper limb, including shoulder (principal); D04.72 Carcinoma in situ of skin of left lower limb, including hip

== ENCOUNTER → 2020-07-10 | Outpatient (REF) | payer MEDICARE, BC | LOC: M LAB REF 16:32 | PROVIDERS: ATTEND Dermatology | DX: D04.30 Carcinoma in situ of skin of unspecified part of face (principal) ==

== ENCOUNTER → 2020-07-30 | Outpatient (REF) | payer MEDICARE, BC | LOC: M LAB REF 09:31 | PROVIDERS: ATTEND Dermatology | DX: L90.5 Scar conditions and fibrosis of skin (principal) ==

== ENCOUNTER → 2020-09-18 | Outpatient (CLI) | payer MEDICARE ==
[~2020-09-18] MED LIST changes: +DOXY100C PO
--- NOTE | 2020-09-18 10:13 | RADONC ---
Radiation Oncology Hx/FUP Radiation Oncology Hx/FUP Date of Service: Sep 18, 2020 Pt Identifier Rebecca Julio is a 70 year old female with a history of self-detected left breast cancer pT1aN0(sn)M0 ER/SC+ HER2- grade 2 she is s/p lumpectomy and SLNB on 01/09/20. She subsequently completed adjuvant APBI 26 Gy in 5 fractions with VMAT on 03/22/20. She is seen today for follow up and survivorship care. Diagnosis/Treatment History Oncologic History Detected a left breast lump in April 2019. In August 2019 she underwent mammogram which showed a lesion in the central left breast. US showed a hypoechoic mass. She saw Dr. Piper who performed a biopsy on 11/02/19 which showed a mucocele with associated DCIS ER/SC+ HER2-. On 01/09/20 she had a lumpectomy and SLNB which showed pT1aN0(sn)M0 grade 2 IDC, and associated DCIS, margins widely negative. She completed APBI 26 Gy in 5 fractions given 03/18/20-03/22/20. She remains on AI per Dr. Shirley. Survivorship: Test Due Next Last result Notes TSH, T4* 6m post-tx, then q1y N/A Carotid US* q10 y post-tx N/A Smoking cessation Assess annually if applicable N/A Quit [address] chest q1y if eligible per USPSTF N/A Borderline eligible based on quit date, will defer Mammograms Min q1y, if breast conservation September 2020 CBC,CMP, Lipids q1y 2021 DEXA q2y if on AI [address] Shirley while on AI Interval History Just feels well. She has no breast concerns aside from post-surgical asymmetry, which she says has not changed since RT. She has no skin changes or tenderness in the left breast. She does have healing incisions from multiple recent skin cancer excisions with Dr. See, left dorsal hand, left [place], and over the left eye. She does note recent development of a mildly tender lump in the left antecubital space. This is concerning to her. Current Therapy Anastrozole Stage Left breast cancer pT1aN0(sn)M0 ER/SC+ HER2- Grade 2 stage IA Social History: 20 pack year former smoker quit 2006 Does not drink currently Allergies / Meds Allergies: Coded Allergies: No Known Allergies (Unverified , 04/17/13) Home Meds Active Scripts Anastrozole (Anastrozole) 1 Mg Tablet, 1 MG PO DAILY for Breast cancer MDD 1 mg for 90 Days, #90 TAB 3 Refills Prov:GREGORIA SHIRLEY MD 05/09/20 Reported Medications Doxycycline Hyclate (Doxycycline Hyclate) 100 Mg Capsule, 100 MG PO BID for 10 Days, #20 CAP 08/07/20 Calcium Carbonate/Vitamin D3 (Calcium 600-Vit D3 800 Tablet) 1 Each Tablet, 1 TAB PO BID for 30 Days, #30 TAB 05/09/20 Cholecalciferol (Vitamin D3) (Vitamin D3) 1,000 Unit Tablet, 2000 UNITS PO DAILY, TAB 03/08/20 Sitagliptin Phosphate (Januvia) 100 Mg Tablet 12/27/19 Atorvastatin Calcium (Atorvastatin Calcium) 20 Mg Tablet 12/27/19 Glipizide (Glipizide ER) 10 Mg Tab.er.24 12/27/19 Hydrochlorothiazide (Hydrochlorothiazide) 25 Mg Tablet 12/27/19 Lisinopril (Lisinopril) 20 Mg Tablet 12/27/19 Aspirin (Aspirin) 81 Mg Tab.chew, 81 MG PO 12/27/19 Metformin HCl (Metformin HCl ER) 500 Mg Tab.er.24h 12/27/19 Insulin Aspart (Novolog Flexpen) 100 Unit/1 Ml Insuln.pen 15 units 12/27/19 Insulin Detemir (Levemir Flextouch) 100 Unit/1 Ml Insuln.pen inject 54 units at bedtime 12/27/19 Review of Systems Review of Systems Constitutional: Denies: Chills, Fever, Fatigue, Weight Loss Eyes: Denies: Pain HEENT: Denies: Head Aches Skin: Denies: Rash Breast: Reports: Other Breast Complaints (Asymmetry); Denies: New Breast Lumps / Masses, Nipple Retraction, Nipple Discharge, Breast Skin Changes, Breast Pain or Tenderness Pulmonary: Denies: Dyspnea Cardiovascular: Denies: Chest Pain Gastrointestinal: Denies: Abdominal Pain Musculoskeletal: Denies: Neck pain, Back pain Neurological: Denies: Weakness, Numbness Psych: Reports: Mood Normal Physical Examination Vital Signs Wt 204 lbs T 97.3 P 66 RR 18 BP 133/70 O2 98% Pain 0 Fatigue 0 General Exam: Positive: Alert, Cooperative, No Acute Distress Eye Exam: Positive: PERRLA, EOMI ENT EXAM: Positive: Atraumatic Neck Exam: Positive: Supple Chest Exam: Positive: Clear to auscultation Heart Exam: Positive: Rate Normal Breast Exam: Negative: Symmetric Bilaterally (Ptotic, R<L size), Lumps or Masses, Nipple Retraction, Nipple Discharge, Skin Changes (No hyperpigmentation or palpable fibrosis in the left breast) Abdomen Exam: Positive: Soft Extremity Exam: Positive: Other (On the left dorsal hand there is a well healed longitudinal incision. In the left medial antecubital space there is a mildly tender 1.5 cm mobile lesion c/w LN); Negative: Edema Skin Exam: Positive: Nl turgor and temperature Neuro Exam: Positive: Normal Gait, Normal Speech, Cranial Nerves 3-12 NL Psych Exam: Positive: Mental status NL Diagnostic and Laboratory Diagnostic Review Radiologic images, relevant labs and pathology reports were personally reviewed and discussed with Ms. Julio. Assessment and Plan Impression Assessment Ms. Julio is a 70 year old female with a history of self-detected left breast cancer pT1aN0(sn)M0 ER/SC+ HER2- grade 2 she is s/p lumpectomy and SLNB on 01/09/20. She subsequently completed adjuvant APBI 26 Gy in 5 fractions with VMAT on 03/22/20. She is seen today for follow up and survivorship care. Doing well overall with no evidence of recurrent breast cancer on exam today. She will have mammograms next month. With respect to follow up of the breast cancer, I suggested seeing her in 6 months in effort to split follow up with her other physicians. I discussed referral to plastic surgery for consideration of mastopexy, given her complaint of breast asymmetry. She will consider this down the line. With respect to her complaint of what seems like an epitrochlear LN, I discussed that we could evaluate with an US. I think this is probably reactive in the setting of recent hand surgery, but because the skin cancer on the hand was SCC, it is worth evaluating proactively. She agreed. Performance Status ECOG 0 Plan Follow up in 6 months US LUE dopplers/soft tissue now Will call with results Ms. Julio was encouraged to call with questions or concerns in the interim period. Billing Statement Total time of [32] minutes was spent preparing for the visit [2], obtaining HPI [6], examining the patient [5], reviewing diagnostic tests [1], discussing management options [7], coordinating care [2], and writing this note [9]. PEPE SANDERS MD Sep 18, 2020 10:13
== END ==
LOC: M ONCR 08:38
PROVIDERS: ATTEND General Practice
DX: C50.112 Malignant neoplasm of central portion of left female breast (principal); C44.629 Squamous cell carcinoma of skin of left upper limb, including shoulder; L98.8 Other specified disorders of the skin and subcutaneous tissue; Z79.4 Long term (current) use of insulin; Z79.82 Long term (current) use of aspirin; Z79.899 Other long term (current) drug therapy; Z87.891 Personal history of nicotine dependence; Z92.3 Personal history of irradiation

== ENCOUNTER → 2020-09-26 | Outpatient (CLI) | payer MEDICARE ==
--- NOTE | 2020-09-26 12:55 | REP ---
INDICATION: ASSESS FOR AXILLARY ADENOPATHY, PALPABLE LESION. 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 Palpable antecubital lesion. COMPARISON: None. TECHNIQUE: Left upper extremity duplex venous sonography. FINDINGS: The internal jugular, axillary, brachial, basilic, and cephalic veins are anechoic and compressible in the left upper extremity. Color flow imaging is homogeneous. Spectral Doppler interrogation is unremarkable. Venous spectral Doppler waveforms are recorded in the proximal right and left subclavian veins. There is symmetric normal pulsatility and respiratory phasicity. There is no evidence of left upper extremity venous thrombosis. IMPRESSION: Negative left upper extremity duplex venous ultrasound. No evidence of venous thrombosis. <Electronically signed by Edil Cook > 09/26/20 [id number]
--- NOTE | 2020-09-26 13:06 | REP ---
INDICATION: AXILLARY ADENOPATHY, PALPABLE ANTECUBITAL LUMP. COMPARISON: None. TECHNIQUE: SONOGRAPHIC EVALUATION THE AXILLA WITH STANDARD AND COLOR IMAGES WELL SCANNING IN THE ANTECUBITAL FOSSA. FINDINGS: IN THE LEFT AXILLA THERE ARE 2 OVAL MASSES MEASURING 2.3 X 1.5 X 1.4 CM AND 2.4 X 1.3 X 1 CM. THERE IS A SMALL HYPOECHOIC CENTER WITH ECHOGENIC TISSUE AROUND IT AND A PERIPHERAL THIN RIM OF HYPOECHOIC TISSUE. THERE IS COLOR FLOW NOTED AT THE LARGER OF THESE LESIONS, NONE SEEN ON THE SMALLER OF THEM. TECHNOLOGIST NOTES INDICATE THAT SHE COULD VISUALLY SEE THE PALPABLE FINDING IN THE ANTECUBITAL FOSSA. THERE IS NO ABNORMAL FLUID COLLECTION. SOME HETEROGENEOUS/HYPOECHOIC TISSUE DEEP WITH THIS ABUTTING THE UNDERLYING BONE. WHETHER THIS INVOLVES THE MUSCLE OR COMPLEX FLUID IN JOINT/BURSAL TISSUES IS UNCERTAIN. IMPRESSION: 1. THE 2 OVOID LESIONS IN THE AXILLA HAVE APPEARANCE OF LINDA MORPHOLOGY WITH HYPERECHOIC TISSUE SURROUNDED BY THIN RIM OF HYPOECHOIC TISSUE. THE ARE ENLARGED MAY BE REACTIVE OR PATHOLOGIC. 2. NONSPECIFIC FINDING IN THE ANTECUBITAL FOSSA. THIS COULD BE COMPLEX LESION ABUTTING THE BONE SUCH HEMORRHAGE IN MUSCLE OR OTHER MASS. INTRA-ARTICULAR OR BURSAL RECESS PROCESS COULD ALSO BE PRESENT. ELBOW MRI MAY BE HELPFUL. <Electronically signed by Ricardo Medina > 09/26/20 [id number]
== END ==
LOC: M RAD 11:36
PROVIDERS: ATTEND General Practice
DX: C50.112 Malignant neoplasm of central portion of left female breast (principal); R22.31 Localized swelling, mass and lump, right upper limb

== ENCOUNTER → 2020-10-08 | Outpatient (CLI) | payer MEDICARE ==
[~2020-10-08] MED LIST changes: -DOXY100C PO; +DOXY100C3 PO
--- NOTE | 2020-10-08 14:05 | REPMRS ---
Patient History The patient states she had a clinical breast exam in July 2020. Patient is postmenopausal, has history of other cancer at age 70, has history of breast cancer at age 69, and has history of cancer in the left breast at age 68. Family history of colorectal cancer at age 50 or over in father. Malignant lumpectomy of the left breast, 2019. Radiation therapy of the left breast, 2019. Taking Anastrozole for 8 months. Patient states no breast complaints today. Patient has signed MRS History Sheet. Digital Woman Screen Mammo: October 08, 2020 - Exam #: [id number] Bilateral CC and MLO view(s) were taken. Technologist: Luz Potter, Technologist Prior study comparison: October 06, 2019, digital mammo diagnostic bilateral, performed at [facility]. FINDINGS: The breast tissue is heterogeneously dense. This may lower the sensitivity of mammography. The Volpara volumetric breast density category is: C. There are surgical clips in the upper outer quadrant/axillary region on the left. There is post treatment dermal thickening in the left breast. There is an area of fibrosis post excisional biopsy in the left superior and medial breast where prior mammography showed an ill-defined density. These are felt to be expected post treatment changes on the left. On the right there are coarse macro and microcalcifications distributed in the upper outer quadrant unchanged from the prior mammography and by report, unchanged form more remote prior mammograms. There is a moderate amount of heterogeneously dense fibroglandular tissue which is fairly symmetric. There is no other interval development of dominant mass, architectural distortion, or grouped microcalcification typical of malignancy. There has been no other change in the appearance of the mammogram from the prior studies. 3-D tomosynthesis shows no additional findings. Assessment: BI-RADS/ACR category 2 mammogram. Benign Findings. Recommendation Routine screening mammogram of both breasts in 1 year (for women over age 40). This mammogram was interpreted with the aid of an FDA-approved computer-aided dectection system. Electronically Signed By: Edil Cook MD 10/08/20 [id number]
== END ==
LOC: M WHC 10:47
PROVIDERS: ATTEND Specialist
DX: Z12.31 Encounter for screening mammogram for malignant neoplasm of breast (principal); Z85.3 Personal history of malignant neoplasm of breast; Z78.0 Asymptomatic menopausal state; Z80.8 Family history of malignant neoplasm of other organs or systems; Z92.3 Personal history of irradiation

== ENCOUNTER → 2020-10-22 | Outpatient (CLI) | payer MEDICARE ==
--- NOTE | 2020-10-22 09:49 | RADENCPD ---
Date/Time of Encounter Date of Encounter: Oct 22, 2020 Time of Encounter: 09:41 Encounter Spoke with Rebecca on the phone for a follow up of her recently appeared left antecubital and axillary nodes. She reports these are persistent, remain non- tender, have not changed. She has no additional lumps or bumps elsewhere. I reviewed her US with her again, several axillary nodes on the left are enlarged and of indeterminate morphology, in addition the left AC lesion is hypoechoic and indeterminate in morphology. I reviewed her recent 10/08/20 mammogram with her, the axilla was not visible in the CC and MLO views, overall there were no concerning findings in the breast, BIRADS 2. I discussed that these lesions may well be reactive to her recent skin cancer surgery on the left hand, but that the persistent now over 1 month warrants further scrutiny. I proposed an US guided FNA of the left axillary nodes would be the most demonstrative site to biopsy. The risks of this procedure are miniscule. If the left axillary node FNA was negative I think we could safely observe without further scrutiny unless there is additional enlargement. If positive we could arrange timely management. She agreed to proceed with biopsy. I will order this to be done in IR non-urgently. We will follow up by phone after the biopsy once final pathology is reported. A total of 7 minutes was spent discussing management with the patient. PEPE SANDERS MD Oct 22, 2020 09:49
== END ==
LOC: M ONCR 15:28
PROVIDERS: ATTEND General Practice
DX: C50.112 Malignant neoplasm of central portion of left female breast (principal); R59.0 Localized enlarged lymph nodes; Z85.828 Personal history of other malignant neoplasm of skin

== ENCOUNTER → 2020-10-23 | Outpatient (CLI) | payer MEDICARE ==
[2020-10-23 14:15] LABS: BASO # 0.1 10^3/uL (0.0-0.2); BASO % 0.8 % (0.0-1.0); EOS # 0.3 10^3/uL (0.0-0.5); EOS % 2.2 % (0.0-3.0); HEMATOCRIT 41.6 % (36.0-47.0); HEMOGLOBIN 13.6 g/dl (12.0-15.5); LYMPH # 1.9 10^3/uL (1.5-5.0); LYMPH % 15.7 % (24.0-44.0); MEAN CORPUSCULAR HEMOGLOBIN 27.1 pg (27.0-33.0); MEAN CORPUSCULAR HGB CONC 32.7 g/dl (32.0-36.5); MEAN CORPUSCULAR VOLUME 82.9 fl (80.0-96.0); MONO # 0.6 10^3/uL (0.0-0.8); MONO % 5.3 % (2.0-8.0); NEUTROPHILS % 75.2 % (36.0-66.0); PLATELET COUNT, AUTOMATED 282 10^3/uL (150-450); RED BLOOD COUNT 5.02 10^6/uL (4.00-5.40); WHITE BLOOD COUNT 11.9 10^3/uL (4.0-10.0)
[2020-10-23 14:25] LABS: INR 0.88; PROTHROMBIN TIME 12.3 SECONDS (12.7-14.5)
[2020-10-23 14:26] LABS: PARTIAL THROMBOPLASTIN TIME 28.7 SECONDS (25.9-37.0)
== END ==
LOC: M ONCR 13:48
PROVIDERS: ATTEND General Practice
DX: C50.112 Malignant neoplasm of central portion of left female breast (principal)

== ENCOUNTER → 2020-10-29 | Outpatient (REF) | payer MEDICARE | LOC: M LAB REF 18:48 | PROVIDERS: ATTEND Dermatology | DX: D04.4 Carcinoma in situ of skin of scalp and neck (principal); L57.0 Actinic keratosis ==

== ENCOUNTER → 2020-11-11 | Outpatient (CLI) | payer MEDICARE ==
[~2020-11-11] MED LIST changes: +LIDOCAINE 1% MDV 20ML VIAL As Ordered ONE
[2020-11-11 11:28] VITALS: BP 158/70
--- NOTE | 2020-11-11 17:00 | REP ---
INDICATION: ENLARGED LT AXILLARY LYMPH NODE. COMPARISON: None. TECHNIQUE: The procedure was performed under the direct supervision of Dr. Feng. The patient has a history of 2 ovoid lesions in the left axilla seen on a previous ultrasound dated 09/26/2020. The risks and benefits of the procedure were explained the patient and informed consent was obtained. The largest of the 2 ovoid lesions were localized using ultrasound guidance. The skin was prepped and draped in a sterile fashion. 9 mL of 1% lidocaine was used as a local anesthetic. Using ultrasound guidance a 17/18 gauge coaxial needle biopsy system was inserted and advanced into the nodule. Five core biopsy samples were obtained and sent to the lab for analysis. The patient tolerated the procedure well and there were no immediate complications. After the appropriate amount to monitor convalescence the patient was discharged from the department. FINDINGS: None IMPRESSION: Ultrasound-guided left axillary lesion biopsy. <Electronically signed by Kamari Arana > 11/11/20 0624 <Electronically signed by Darien Feng > 11/11/20 [id number]
== END ==
LOC: M IRPRO 10:44
PROVIDERS: ATTEND General Practice
DX: R59.0 Localized enlarged lymph nodes (principal)

== ENCOUNTER → 2020-12-11 | Outpatient (REF) | payer MEDICARE ==
[~2020-12-11] MED LIST changes: -LIDOCAINE 1% MDV 20ML VIAL As Ordered ONE
== END ==
LOC: M LAB REF 17:54
PROVIDERS: ATTEND Physician Assistant
DX: Z48.02 Encounter for removal of sutures (principal)

== ENCOUNTER → 2020-12-18 | Outpatient (REF) | payer MEDICARE | LOC: M LAB REF 14:22 | PROVIDERS: ATTEND Dermatology | DX: Z48.02 Encounter for removal of sutures (principal) ==

== ENCOUNTER → 2020-12-30 | Outpatient (REF) | payer MEDICARE | LOC: M LAB REF 13:51 | PROVIDERS: ATTEND Dermatology | DX: T14.90XD Injury, unspecified, subsequent encounter (principal) ==

== ENCOUNTER → 2021-05-07 | Outpatient (REF) | payer MEDICARE ==
[~2021-05-07] MED LIST changes: -D31000TA2 PO; +VITA100093 PO
== END ==
LOC: M SFHCDERM 13:46
PROVIDERS: ATTEND Physician Assistant
DX: D04.0 Carcinoma in situ of skin of lip (principal)

== ENCOUNTER → 2021-06-26 | Outpatient (REF) | payer MEDICARE | LOC: M SFHCDERM 14:17 | PROVIDERS: ATTEND Physician Assistant | DX: D04.39 Carcinoma in situ of skin of other parts of face (principal); L57.0 Actinic keratosis ==

== ENCOUNTER → 2021-09-16 | Outpatient (CLI) | payer MEDICARE ==
[~2021-09-16] MED LIST changes: +AMOX875T2 PO
== END ==
LOC: M ONCR 10:49
PROVIDERS: ATTEND General Practice
DX: L02.412 Cutaneous abscess of left axilla (principal); C50.112 Malignant neoplasm of central portion of left female breast
CPT/HCPCS: 10160; 87070; G0463

== ENCOUNTER → 2021-10-17 | Outpatient (CLI) | payer MEDICARE ==
[~2021-10-17] MED LIST changes: +CLIN150C17 PO
== END ==
LOC: M ONCR 10:19
PROVIDERS: ATTEND General Practice
DX: C50.112 Malignant neoplasm of central portion of left female breast (principal); L02.412 Cutaneous abscess of left axilla

== ENCOUNTER → 2021-10-21 | Outpatient (CLI) | payer MEDICARE | LOC: M WHC 09:47 | PROVIDERS: ATTEND Specialist | DX: Z12.31 Encounter for screening mammogram for malignant neoplasm of breast (principal); Z85.3 Personal history of malignant neoplasm of breast ==

== ENCOUNTER → 2022-04-08 | Outpatient (REF) | payer MEDICARE ==
[2022-04-08 11:15] LABS: BASO # 0.1 10^3/uL (0.0-0.2); BASO % 0.8 % (0.0-1.0); EOS # 0.2 10^3/uL (0.0-0.5); HEMATOCRIT 39.8 % (36.0-47.0); HEMOGLOBIN 12.9 g/dl (12.0-15.5); LYMPH # 1.8 10^3/uL (1.5-5.0); LYMPH % 17.6 % (24.0-44.0); MEAN CORPUSCULAR HEMOGLOBIN 26.8 pg (27.0-33.0); MEAN CORPUSCULAR HGB CONC 32.4 g/dl (32.0-36.5); MEAN CORPUSCULAR VOLUME 82.6 fl (80.0-96.0); MONO # 0.6 10^3/uL (0.0-0.8); MONO % 5.7 % (2.0-8.0); NEUTROPHILS # 7.4 10^3/uL (1.5-8.5); NEUTROPHILS % 73.3 % (36.0-66.0); PLATELET COUNT, AUTOMATED 274 10^3/uL (150-450); RED BLOOD COUNT 4.82 10^6/uL (4.00-5.40); WHITE BLOOD COUNT 10.1 10^3/uL (4.0-10.0)
[2022-04-08 11:35] LABS: CREATININE, URINE 107.6 MG/DL; MAU/CREAT RATIO 3.7 MCG/MG (0.0-30.0)
[2022-04-08 11:38] LABS: THYROID STIMULATING HORMONE 1.843 uIU/ML (0.55-4.78)
[2022-04-08 11:39] LABS: ALBUMIN 3.9 G/DL (3.2-5.2); BILIRUBIN,TOTAL 1.9 MG/DL (0.3-1.2); CALCIUM LEVEL 9.7 MG/DL (8.3-10.6); CHOLESTEROL RISK RATIO 4.51 (<5); CREATININE FOR GFR 1.05 MG/DL (0.55-1.30); GLOMERULAR FILTRATION RATE 55.3 (>45); HDL CHOLESTEROL 30.1 MG/DL (>40); LDL CHOLESTEROL 64.3 MG/DL (<100); POTASSIUM SERUM 4.1 MMOL/L (3.5-5.1)
== END ==
LOC: M LAB REF 10:50
PROVIDERS: ATTEND Nurse Practitioner Family
DX: I10 Essential (primary) hypertension (principal); E78.5 Hyperlipidemia, unspecified

== ENCOUNTER → 2022-05-20 | Outpatient (CLI) | payer MEDICARE ==
[~2022-05-20] MED LIST changes: +INSU100I6; -LEVE1INJ5
== END ==
LOC: M ONCR 10:11
PROVIDERS: ATTEND General Practice
DX: C50.112 Malignant neoplasm of central portion of left female breast (principal); Z79.4 Long term (current) use of insulin; Z79.811 Long term (current) use of aromatase inhibitors; Z79.84 Long term (current) use of oral hypoglycemic drugs; Z79.899 Other long term (current) drug therapy; Z87.891 Personal history of nicotine dependence; Z92.3 Personal history of irradiation

== ENCOUNTER → 2022-10-22 | Outpatient (CLI) | payer MEDICARE | LOC: M WHC 12:07 | PROVIDERS: ATTEND Specialist | DX: Z12.31 Encounter for screening mammogram for malignant neoplasm of breast (principal); C50.919 Malignant neoplasm of unspecified site of unspecified female breast ==

== ENCOUNTER → 2023-05-21 | Outpatient (CLI) | payer MEDICARE ==
[~2023-05-21] MED LIST changes: +INSU100I48
== END ==
LOC: M ONCR 14:10
PROVIDERS: ATTEND General Practice
DX: C50.112 Malignant neoplasm of central portion of left female breast (principal); Z79.4 Long term (current) use of insulin; Z79.82 Long term (current) use of aspirin; Z79.84 Long term (current) use of oral hypoglycemic drugs; Z79.899 Other long term (current) drug therapy; Z87.891 Personal history of nicotine dependence; Z92.3 Personal history of irradiation

== ENCOUNTER → 2023-11-08 | Outpatient (CLI) | payer MEDICARE | LOC: M WHC 09:29 | PROVIDERS: ATTEND Nurse Practitioner Family | DX: Z12.31 Encounter for screening mammogram for malignant neoplasm of breast (principal) ==

== ENCOUNTER → 2024-01-21 | Outpatient (CLI) | payer MEDICARE | LOC: M RAD 09:08 | PROVIDERS: ATTEND Nurse Practitioner Family | DX: D38.1 Neoplasm of uncertain behavior of trachea, bronchus and lung (principal); R91.8 Other nonspecific abnormal finding of lung field; Z87.891 Personal history of nicotine dependence ==

== ENCOUNTER → 2024-05-19 | Outpatient (CLI) | payer MEDICARE ==
[~2024-05-19] MED LIST changes: +GLIP-320; -GLIP10TA18
== END ==
LOC: M ONCR 09:44
PROVIDERS: ATTEND General Practice
DX: C50.112 Malignant neoplasm of central portion of left female breast (principal); L57.0 Actinic keratosis; L57.8 Other skin changes due to chronic exposure to nonionizing radiation; W90.8XXA Exposure to other nonionizing radiation, initial encounter; Z98.890 Other specified postprocedural states; Z92.3 Personal history of irradiation; Z79.811 Long term (current) use of aromatase inhibitors; Z87.891 Personal history of nicotine dependence; Z79.4 Long term (current) use of insulin; Z79.82 Long term (current) use of aspirin; Z79.84 Long term (current) use of oral hypoglycemic drugs; Z79.899 Other long term (current) drug therapy

== ENCOUNTER → 2024-11-08 | Outpatient (CLI) | payer MEDICARE | LOC: M WHC 09:43 | PROVIDERS: ATTEND Nurse Practitioner Women's Health | DX: Z12.31 Encounter for screening mammogram for malignant neoplasm of breast (principal); M81.0 Age-related osteoporosis without current pathological fracture ==

== ENCOUNTER → 2024-11-29 | Outpatient (CLI) | payer MEDICARE | LOC: M WHC 09:46 | PROVIDERS: ATTEND Nurse Practitioner Women's Health | DX: R92.8 Other abnormal and inconclusive findings on diagnostic imaging of breast (principal); Z85.3 Personal history of malignant neoplasm of breast | CPT/HCPCS: 77065; G0279 ==